=== PATIENT | male | born 1950 | race Caucasian/White ===

== ENCOUNTER 2019-07-04 19:35 | Inpatient (IN) | payer MEDICARE, OTHER ==
[~2019-07-04] VITALS: Ht 182.9 cm; Wt 135.8 kg
[2019-07-04 20:00] VITALS: BP 131/69
[2019-07-04] MEDS ORDERED: ACETAMINOPHEN 650 MG SUPP.RECT. PR PRN (20:15)
[2019-07-04] MEDS ORDERED: IV DEXTROSE 5% 250 ML BAG. IV PRN (20:15)
[2019-07-04] MEDS ORDERED: ONDANSETRON PF 4 MG/2 ML VIAL. IV PRN (20:15)
[2019-07-04] MEDS ORDERED: DEXTROSE 50% 25 GM / 50ML DISP.SYRIN. IV PRN (20:15)
[2019-07-04] MEDS ORDERED: ACETAMINOPHEN 325 MG TABLET. PO PRN (20:15)
[2019-07-04] MEDS ORDERED: AMINO AC 3%/ELECTROLYTE/GLYCER 1,000 ML IV SCH (20:15)
[2019-07-04 20:39] LABS: BASE EXCESS ABG 0 mmol/L (-3-3); HCO3 ABG 25 mmol/L (21-28); PCO2 ABG 38 mmHg (35-46); PO2 ABG 79 mmHg (65-108); SAT O2 ABG 95 % (92-99)
[2019-07-04] MEDS: ENOXAPARIN 40 MG/0.4 ML SYRINGE. SQ SCH (20:43)
[2019-07-04 20:44] LABS: FIO2 ABG 35
[2019-07-04 21:00] VITALS: BP 132/65
--- NOTE | 2019-07-04 21:00 | NUR ---
Received patient from [facility] via EMS with EMT x2 at bedside at 1930. Pt on BiPAP for transport. All monitors applied. Pt lethargic and not answering questions unless prodded. All consults called. Spoke with Dr Thompson and admission orders received. Admission complete. Plan of care initiated.
[2019-07-04] MEDS: AA 4.25 %/CALCIUM/LYTES/D5W 1,000 ML IV SCH (21:27)
[2019-07-04 22:00] VITALS: BP 135/72
[2019-07-04 22:19] LABS: BASO # 0.1 x10^3/uL (0.0-0.2); BASO % 1 % (0-3); EOS # 0.3 x10^3/uL (0.0-0.7); EOS % 2 % (0-3); LYMPH # 1.5 x10^3/uL (1.0-4.8); LYMPH % 10 % (24-48); MEAN CORPUSCULAR HEMOGLOBIN 28 pg (25-35); MEAN CORPUSCULAR HGB CONC 33 g/dL (31-37); MEAN CORPUSCULAR VOLUME 85 fL (79-100); MONO # 1.5 x10^3/uL (0.0-1.1); MONO % 9 % (0-9); NEUT # 12.2 x10^3/uL (1.8-7.7); NEUT % 78 % (31-73); PLATELET COUNT 310 x10^3/uL (140-400); RED BLOOD COUNT 2.37 x10^6/uL (4.30-5.70); RED CELL DISTRIBUTION WIDTH 15.9 % (11.5-14.5); WHITE BLOOD COUNT 15.5 x10^3/uL (4.0-11.0)
[2019-07-04 22:26] LABS: HEMATOCRIT 20.3 % (39.0-53.0); HEMOGLOBIN 6.6 g/dL (13.0-17.5)
[2019-07-04 22:38] LABS: ALBUMIN 2.1 g/dL (3.4-5.0); ALBUMIN/GLOBULIN RATIO 0.6 (1.0-1.7); CALCIUM 7.5 mg/dL (8.5-10.1); CREATININE 1.5 mg/dL (0.7-1.3); GFR 46.7; TOTAL BILIRUBIN 1.1 mg/dL (0.2-1.0); TOTAL PROTEIN 5.5 g/dL (6.4-8.2)
[2019-07-04 23:00] VITALS: BP 142/62
[2019-07-05] VITALS (20 sets, daily range): BP systolic 136–169; BP diastolic 58–90
[2019-07-05] MEDS: INSULIN LISPRO 300 UNITS/3 ML VIAL. SQ SCH ×5 (00:15→17:40)
--- NOTE | 2019-07-05 01:00 | NUR ---
Pt now awake and conversing freely. Pt angry at self for situation. Watching TV and calmer now. Medical situation discussed and NPO status discussed.
[2019-07-05 06:51] LABS: BASO # 0.1 x10^3/uL (0.0-0.2); BASO % 1 % (0-3); EOS # 0.4 x10^3/uL (0.0-0.7); EOS % 3 % (0-3); LYMPH # 1.5 x10^3/uL (1.0-4.8); LYMPH % 11 % (24-48); MEAN CORPUSCULAR HEMOGLOBIN 28 pg (25-35); MEAN CORPUSCULAR HGB CONC 33 g/dL (31-37); MEAN CORPUSCULAR VOLUME 85 fL (79-100); MONO # 1.3 x10^3/uL (0.0-1.1); MONO % 10 % (0-9); NEUT # 10.5 x10^3/uL (1.8-7.7); NEUT % 76 % (31-73); PLATELET COUNT 306 x10^3/uL (140-400); RED BLOOD COUNT 2.41 x10^6/uL (4.30-5.70); RED CELL DISTRIBUTION WIDTH 15.9 % (11.5-14.5); WHITE BLOOD COUNT 13.8 x10^3/uL (4.0-11.0)
[2019-07-05 06:57] LABS: HEMATOCRIT 20.5 % (39.0-53.0); HEMOGLOBIN 6.7 g/dL (13.0-17.5)
[2019-07-05 07:06] LABS: ALBUMIN 2.2 g/dL (3.4-5.0); ALBUMIN/GLOBULIN RATIO 0.6 (1.0-1.7); CALCIUM 7.9 mg/dL (8.5-10.1); CREATININE 1.4 mg/dL (0.7-1.3); GFR 50.5; POTASSIUM 4.2 mmol/L (3.5-5.1); TOTAL BILIRUBIN 1.1 mg/dL (0.2-1.0); TOTAL PROTEIN 5.6 g/dL (6.4-8.2)
[2019-07-05] MEDS ORDERED: INSULIN LISPRO 300 UNITS/3 ML VIAL. SQ SCH (08:00)
--- NOTE | 2019-07-05 08:13 | RAD ---
EXAM: CHEST ONE VIEW. HISTORY: Congestive heart failure. COMPARISON: None. FINDINGS: A frontal view of the chest is obtained. The central vasculature is prominent. There is no pneumothorax or clear pleural effusion. The heart is moderately enlarged. IMPRESSION: 1. Findings suggesting mild volume overload. Moderate cardiomegaly. Electronically signed by: Mali Martinez MD (07/05/2019 8:11 AM) [facility]
[2019-07-05 08:40] LABS: BASE EXCESS ABG 0 mmol/L (-3-3); HCO3 ABG 25 mmol/L (21-28); PCO2 ABG 40 mmHg (35-46); PO2 ABG 100 mmHg (65-108); SAT O2 ABG 97 % (92-99)
[2019-07-05 08:42] LABS: FIO2 ABG 35
[2019-07-05] MEDS: PANTOPRAZOLE IV PUSH 40 MG VIAL. IVP SCH (08:44)
[2019-07-05] MEDS ORDERED: FURO40TA4 PO (09:07)
[2019-07-05] MEDS ORDERED: AMLO10TA8 PO (09:07)
[2019-07-05] MEDS ORDERED: INSU100V8 SQ (09:07)
[2019-07-05] MEDS ORDERED: INSU100V6 SQ (09:07)
[2019-07-05] MEDS ORDERED: ATOR80TA72 PO (09:07)
[2019-07-05] MEDS ORDERED: LACT1CAP21 PO (09:07)
[2019-07-05] MEDS ORDERED: TAMS0.4C97 PO (09:07)
[2019-07-05] MEDS ORDERED: CARV25TA2 PO (09:07)
[2019-07-05] MEDS ORDERED: LISI-130 PO (09:07)
[2019-07-05] MEDS: AA 4.25 %/CALCIUM/LYTES/D5W 1,000 ML IV SCH (09:09)
--- NOTE | 2019-07-05 10:35 | NUR ---
Dr. Ramu monroe for critical result of Hgb 6.7 orders received to transfuse 1 unit of RBCs
--- NOTE | 2019-07-05 10:58 | PDOC ---
CARDIO Progress Notes Date and Time Date of Service 07/05/19 Time of Evaluation 1050 Subjective Subjective: No Chest Pain, No shortness of breath, No Palpitations, Other (denies any SOA. Is on BiPAP) Vitals Vitals Vital Signs Date Time Temp Pulse Resp B/P (MAP) Pulse Ox O2 Delivery O2 Flow Rate FiO2 07/05/19 10:00 97.2 66 17 154/67 (96) 100 97.2 07/05/19 09:14 BiPAP/CPAP Weight Weight [ ] Input and Output Intake and Output Intake and Output 07/05/19 07:00 Intake Total 738.2 ml Output Total 1525 ml Balance -786.8 ml Intake IV Total 738.2 ml Output Urine Total 1525 ml Laboratory Labs Laboratory Tests Test 07/04/19 20:35 07/04/19 22:00 07/05/19 00:08 07/05/19 05:40 O2 Saturation 95 % (92-99) Arterial Blood pH 7.43 (7.35-7.45) Arterial Blood pCO2 at Patient Temp 38 mmHg (35-46) Arterial Blood pO2 at Patient Temp 79 mmHg (65-108) Arterial Blood HCO3 25 mmol/L (21-28) Arterial Blood Base Excess 0 mmol/L (-3-3) FiO2 35 White Blood Count 15.5 x10^3/uL (4.0-11.0) Red Blood Count 2.37 x10^6/uL (4.30-5.70) Hemoglobin 6.6 g/dL (13.0-17.5) Hematocrit 20.3 % (39.0-53.0) Mean Corpuscular Volume 85 fL (79-100) Mean Corpuscular Hemoglobin 28 pg (25-35) Mean Corpuscular Hemoglobin Concent 33 g/dL (31-37) Red Cell Distribution Width 15.9 % (11.5-14.5) Platelet Count 310 x10^3/uL (140-400) Neutrophils (%) (Auto) 78 % (31-73) Lymphocytes (%) (Auto) 10 % (24-48) Monocytes (%) (Auto) 9 % (0-9) Eosinophils (%) (Auto) 2 % (0-3) Basophils (%) (Auto) 1 % (0-3) Neutrophils # (Auto) 12.2 x10^3/uL (1.8-7.7) Lymphocytes # (Auto) 1.5 x10^3/uL (1.0-4.8) Monocytes # (Auto) 1.5 x10^3/uL (0.0-1.1) Eosinophils # (Auto) 0.3 x10^3/uL (0.0-0.7) Basophils # (Auto) 0.1 x10^3/uL (0.0-0.2) Sodium Level 144 mmol/L (136-145) Potassium Level 4.0 mmol/L (3.5-5.1) Chloride Level 108 mmol/L (98-107) Carbon Dioxide Level 28 mmol/L (21-32) Anion Gap 8 (6-14) Blood Urea Nitrogen 23 mg/dL (8-26) Creatinine 1.5 mg/dL (0.7-1.3) Estimated GFR (Cockcroft-Gault) 46.7 BUN/Creatinine Ratio 15 (6-20) Glucose Level 161 mg/dL (70-99) Calcium Level 7.5 mg/dL (8.5-10.1) Total Bilirubin 1.1 mg/dL (0.2-1.0) Aspartate Amino Transf (AST/SGOT) 14 U/L (15-37) Alanine Aminotransferase (ALT/SGPT) 17 U/L (16-63) Alkaline Phosphatase 69 U/L (46-116) Total Protein 5.5 g/dL (6.4-8.2) Albumin 2.1 g/dL (3.4-5.0) Albumin/Globulin Ratio 0.6 (1.0-1.7) Glucose (Fingerstick) 171 mg/dL (70-99) 192 mg/dL (70-99) Test 07/05/19 06:30 07/05/19 08:00 White Blood Count 13.8 x10^3/uL (4.0-11.0) Red Blood Count 2.41 x10^6/uL (4.30-5.70) Hemoglobin 6.7 g/dL (13.0-17.5) Hematocrit 20.5 % (39.0-53.0) Mean Corpuscular Volume 85 fL (79-100) Mean Corpuscular Hemoglobin 28 pg (25-35) Mean Corpuscular Hemoglobin Concent 33 g/dL (31-37) Red Cell Distribution Width 15.9 % (11.5-14.5) Platelet Count 306 x10^3/uL (140-400) Neutrophils (%) (Auto) 76 % (31-73) Lymphocytes (%) (Auto) 11 % (24-48) Monocytes (%) (Auto) 10 % (0-9) Eosinophils (%) (Auto) 3 % (0-3) Basophils (%) (Auto) 1 % (0-3) Neutrophils # (Auto) 10.5 x10^3/uL (1.8-7.7) Lymphocytes # (Auto) 1.5 x10^3/uL (1.0-4.8) Monocytes # (Auto) 1.3 x10^3/uL (0.0-1.1) Eosinophils # (Auto) 0.4 x10^3/uL (0.0-0.7) Basophils # (Auto) 0.1 x10^3/uL (0.0-0.2) Sodium Level 144 mmol/L (136-145) Potassium Level 4.2 mmol/L (3.5-5.1) Chloride Level 109 mmol/L (98-107) Carbon Dioxide Level 30 mmol/L (21-32) Anion Gap 5 (6-14) Blood Urea Nitrogen 24 mg/dL (8-26) Creatinine 1.4 mg/dL (0.7-1.3) Estimated GFR (Cockcroft-Gault) 50.5 BUN/Creatinine Ratio 17 (6-20) Glucose Level 206 mg/dL (70-99) Calcium Level 7.9 mg/dL (8.5-10.1) Total Bilirubin 1.1 mg/dL (0.2-1.0) Aspartate Amino Transf (AST/SGOT) 11 U/L (15-37) Alanine Aminotransferase (ALT/SGPT) 18 U/L (16-63) Alkaline Phosphatase 65 U/L (46-116) Ammonia < 10 mcmol/L (11-34) Total Protein 5.6 g/dL (6.4-8.2) Albumin 2.2 g/dL (3.4-5.0) Albumin/Globulin Ratio 0.6 (1.0-1.7) O2 Saturation 97 % (92-99) Arterial Blood pH 7.41 (7.35-7.45) Arterial Blood pCO2 at Patient Temp 40 mmHg (35-46) Arterial Blood pO2 at Patient Temp 100 mmHg (65-108) Arterial Blood HCO3 25 mmol/L (21-28) Arterial Blood Base Excess 0 mmol/L (-3-3) FiO2 35 Physical Exam HEENT: Neck Supple W Full Motion Chest: Symmetric LUNGS: Other (on BiPAP, diminished ) Heart: S1S2, RRR, other (distant heart tones ) Abdomen: Soft N/T, Other (obese ) Extremities: Other (trace bilateral LE edema ) Neurology: alert, oriented, follow commands Assessment Assessment Patient seen by our service at [facility] 07/04/19. Please see consul in physical chart for further details. Assessment 1. Weakness, fatigue in the setting of profound anemia; requiring multiple transfusion; no obvious bleeding 2. Acute on chronic probable diastolic CHF 3. Acute respiratory failure, multifactiorial 4. KALANI with CPAP 5. CAD s/p PCI/stents in 2009. Previously followed at , but not recently 6. Hypertension; controlled 7. Hyperlipidemia; statin therapy 8. Diabetes, II; as per PCP 9. GLENN vs CKD Recommendation Transfuse as warranted Diuresis following blood today Echo to assess LV systolic function Lipids Secondary prevent as able No ASA with anemia Consider further ischemic evaluation on an outpatient basis TJ ALTAMIRANO APRN Jul 05, 2019 10:58
[2019-07-05] MEDS ORDERED: FUROSEMIDE 40 MG/4 ML VIAL. IVP ONE (11:30)
[2019-07-05 11:51] LABS: CHOLESTEROL/HDL RATIO 3.2
[2019-07-05] MEDS ORDERED: ATOR40TA59 PO (12:47)
[2019-07-05] MEDS: TAMSULOSIN 0.4 MG CAP.ER.24H. PO SCH (13:21)
[2019-07-05] MEDS: LISINOPRIL 20 MG TABLET PO SCH (13:22)
[2019-07-05] MEDS: LACTOBACILLUS RHAMNOSUS GG 1 CAPSULE. PO SCH (13:22)
--- NOTE | 2019-07-05 14:05 | PDOC ---
PULMONARY PROGRESS NOTES Vitals Vital Signs Date Time Temp Pulse Resp B/P (MAP) Pulse Ox O2 Delivery O2 Flow Rate FiO2 07/05/19 13:22 68 166/64 07/05/19 13:00 97.9 17 96 Nasal Cannula 3.0 97.9 Labs Laboratory Tests Test 07/04/19 20:35 07/04/19 22:00 07/05/19 00:08 07/05/19 05:40 O2 Saturation 95 % (92-99) Arterial Blood pH 7.43 (7.35-7.45) Arterial Blood pCO2 at Patient Temp 38 mmHg (35-46) Arterial Blood pO2 at Patient Temp 79 mmHg (65-108) Arterial Blood HCO3 25 mmol/L (21-28) Arterial Blood Base Excess 0 mmol/L (-3-3) FiO2 35 White Blood Count 15.5 x10^3/uL (4.0-11.0) Red Blood Count 2.37 x10^6/uL (4.30-5.70) Hemoglobin 6.6 g/dL (13.0-17.5) Hematocrit 20.3 % (39.0-53.0) Mean Corpuscular Volume 85 fL (79-100) Mean Corpuscular Hemoglobin 28 pg (25-35) Mean Corpuscular Hemoglobin Concent 33 g/dL (31-37) Red Cell Distribution Width 15.9 % (11.5-14.5) Platelet Count 310 x10^3/uL (140-400) Neutrophils (%) (Auto) 78 % (31-73) Lymphocytes (%) (Auto) 10 % (24-48) Monocytes (%) (Auto) 9 % (0-9) Eosinophils (%) (Auto) 2 % (0-3) Basophils (%) (Auto) 1 % (0-3) Neutrophils # (Auto) 12.2 x10^3/uL (1.8-7.7) Lymphocytes # (Auto) 1.5 x10^3/uL (1.0-4.8) Monocytes # (Auto) 1.5 x10^3/uL (0.0-1.1) Eosinophils # (Auto) 0.3 x10^3/uL (0.0-0.7) Basophils # (Auto) 0.1 x10^3/uL (0.0-0.2) Sodium Level 144 mmol/L (136-145) Potassium Level 4.0 mmol/L (3.5-5.1) Chloride Level 108 mmol/L (98-107) Carbon Dioxide Level 28 mmol/L (21-32) Anion Gap 8 (6-14) Blood Urea Nitrogen 23 mg/dL (8-26) Creatinine 1.5 mg/dL (0.7-1.3) Estimated GFR (Cockcroft-Gault) 46.7 BUN/Creatinine Ratio 15 (6-20) Glucose Level 161 mg/dL (70-99) Calcium Level 7.5 mg/dL (8.5-10.1) Total Bilirubin 1.1 mg/dL (0.2-1.0) Aspartate Amino Transf (AST/SGOT) 14 U/L (15-37) Alanine Aminotransferase (ALT/SGPT) 17 U/L (16-63) Alkaline Phosphatase 69 U/L (46-116) Total Protein 5.5 g/dL (6.4-8.2) Albumin 2.1 g/dL (3.4-5.0) Albumin/Globulin Ratio 0.6 (1.0-1.7) Glucose (Fingerstick) 171 mg/dL (70-99) 192 mg/dL (70-99) Test 07/05/19 06:30 07/05/19 08:00 07/05/19 12:11 White Blood Count 13.8 x10^3/uL (4.0-11.0) Red Blood Count 2.41 x10^6/uL (4.30-5.70) Hemoglobin 6.7 g/dL (13.0-17.5) Hematocrit 20.5 % (39.0-53.0) Mean Corpuscular Volume 85 fL (79-100) Mean Corpuscular Hemoglobin 28 pg (25-35) Mean Corpuscular Hemoglobin Concent 33 g/dL (31-37) Red Cell Distribution Width 15.9 % (11.5-14.5) Platelet Count 306 x10^3/uL (140-400) Neutrophils (%) (Auto) 76 % (31-73) Lymphocytes (%) (Auto) 11 % (24-48) Monocytes (%) (Auto) 10 % (0-9) Eosinophils (%) (Auto) 3 % (0-3) Basophils (%) (Auto) 1 % (0-3) Neutrophils # (Auto) 10.5 x10^3/uL (1.8-7.7) Lymphocytes # (Auto) 1.5 x10^3/uL (1.0-4.8) Monocytes # (Auto) 1.3 x10^3/uL (0.0-1.1) Eosinophils # (Auto) 0.4 x10^3/uL (0.0-0.7) Basophils # (Auto) 0.1 x10^3/uL (0.0-0.2) Sodium Level 144 mmol/L (136-145) Potassium Level 4.2 mmol/L (3.5-5.1) Chloride Level 109 mmol/L (98-107) Carbon Dioxide Level 30 mmol/L (21-32) Anion Gap 5 (6-14) Blood Urea Nitrogen 24 mg/dL (8-26) Creatinine 1.4 mg/dL (0.7-1.3) Estimated GFR (Cockcroft-Gault) 50.5 BUN/Creatinine Ratio 17 (6-20) Glucose Level 206 mg/dL (70-99) Calcium Level 7.9 mg/dL (8.5-10.1) Total Bilirubin 1.1 mg/dL (0.2-1.0) Aspartate Amino Transf (AST/SGOT) 11 U/L (15-37) Alanine Aminotransferase (ALT/SGPT) 18 U/L (16-63) Alkaline Phosphatase 65 U/L (46-116) Ammonia < 10 mcmol/L (11-34) Total Protein 5.6 g/dL (6.4-8.2) Albumin 2.2 g/dL (3.4-5.0) Albumin/Globulin Ratio 0.6 (1.0-1.7) Triglycerides Level 70 mg/dL (0-150) Cholesterol Level 95 mg/dL (0-200) LDL Cholesterol, Calculated 51 mg/dL (0-100) VLDL Cholesterol, Calculated 14 mg/dL (0-40) Non-HDL Cholesterol Calculated 65 mg/dL (0-129) HDL Cholesterol 30 mg/dL (40-60) Cholesterol/HDL Ratio 3.2 Thyroid Stimulating Hormone (TSH) 0.698 uIU/mL (0.358-3.74) O2 Saturation 97 % (92-99) Arterial Blood pH 7.41 (7.35-7.45) Arterial Blood pCO2 at Patient Temp 40 mmHg (35-46) Arterial Blood pO2 at Patient Temp 100 mmHg (65-108) Arterial Blood HCO3 25 mmol/L (21-28) Arterial Blood Base Excess 0 mmol/L (-3-3) FiO2 35 Glucose (Fingerstick) 206 mg/dL (70-99) Laboratory Tests Test 07/04/19 20:35 07/04/19 22:00 07/05/19 00:08 07/05/19 05:40 O2 Saturation 95 % (92-99) Arterial Blood pH 7.43 (7.35-7.45) Arterial Blood pCO2 at Patient Temp 38 mmHg (35-46) Arterial Blood pO2 at Patient Temp 79 mmHg (65-108) Arterial Blood HCO3 25 mmol/L (21-28) Arterial Blood Base Excess 0 mmol/L (-3-3) FiO2 35 White Blood Count 15.5 x10^3/uL (4.0-11.0) Red Blood Count 2.37 x10^6/uL (4.30-5.70) Hemoglobin 6.6 g/dL (13.0-17.5) Hematocrit 20.3 % (39.0-53.0) Mean Corpuscular Volume 85 fL (79-100) Mean Corpuscular Hemoglobin 28 pg (25-35) Mean Corpuscular Hemoglobin Concent 33 g/dL (31-37) Red Cell Distribution Width 15.9 % (11.5-14.5) Platelet Count 310 x10^3/uL (140-400) Neutrophils (%) (Auto) 78 % (31-73) Lymphocytes (%) (Auto) 10 % (24-48) Monocytes (%) (Auto) 9 % (0-9) Eosinophils (%) (Auto) 2 % (0-3) Basophils (%) (Auto) 1 % (0-3) Neutrophils # (Auto) 12.2 x10^3/uL (1.8-7.7) Lymphocytes # (Auto) 1.5 x10^3/uL (1.0-4.8) Monocytes # (Auto) 1.5 x10^3/uL (0.0-1.1) Eosinophils # (Auto) 0.3 x10^3/uL (0.0-0.7) Basophils # (Auto) 0.1 x10^3/uL (0.0-0.2) Sodium Level 144 mmol/L (136-145) Potassium Level 4.0 mmol/L (3.5-5.1) Chloride Level 108 mmol/L (98-107) Carbon Dioxide Level 28 mmol/L (21-32) Anion Gap 8 (6-14) Blood Urea Nitrogen 23 mg/dL (8-26) Creatinine 1.5 mg/dL (0.7-1.3) Estimated GFR (Cockcroft-Gault) 46.7 BUN/Creatinine Ratio 15 (6-20) Glucose Level 161 mg/dL (70-99) Calcium Level 7.5 mg/dL (8.5-10.1) Total Bilirubin 1.1 mg/dL (0.2-1.0) Aspartate Amino Transf (AST/SGOT) 14 U/L (15-37) Alanine Aminotransferase (ALT/SGPT) 17 U/L (16-63) Alkaline Phosphatase 69 U/L (46-116) Total Protein 5.5 g/dL (6.4-8.2) Albumin 2.1 g/dL (3.4-5.0) Albumin/Globulin Ratio 0.6 (1.0-1.7) Glucose (Fingerstick) 171 mg/dL (70-99) 192 mg/dL (70-99) Test 07/05/19 06:30 07/05/19 08:00 07/05/19 12:11 White Blood Count 13.8 x10^3/uL (4.0-11.0) Red Blood Count 2.41 x10^6/uL (4.30-5.70) Hemoglobin 6.7 g/dL (13.0-17.5) Hematocrit 20.5 % (39.0-53.0) Mean Corpuscular Volume 85 fL (79-100) Mean Corpuscular Hemoglobin 28 pg (25-35) Mean Corpuscular Hemoglobin Concent 33 g/dL (31-37) Red Cell Distribution Width 15.9 % (11.5-14.5) Platelet Count 306 x10^3/uL (140-400) Neutrophils (%) (Auto) 76 % (31-73) Lymphocytes (%) (Auto) 11 % (24-48) Monocytes (%) (Auto) 10 % (0-9) Eosinophils (%) (Auto) 3 % (0-3) Basophils (%) (Auto) 1 % (0-3) Neutrophils # (Auto) 10.5 x10^3/uL (1.8-7.7) Lymphocytes # (Auto) 1.5 x10^3/uL (1.0-4.8) Monocytes # (Auto) 1.3 x10^3/uL (0.0-1.1) Eosinophils # (Auto) 0.4 x10^3/uL (0.0-0.7) Basophils # (Auto) 0.1 x10^3/uL (0.0-0.2) Sodium Level 144 mmol/L (136-145) Potassium Level 4.2 mmol/L (3.5-5.1) Chloride Level 109 mmol/L (98-107) Carbon Dioxide Level 30 mmol/L (21-32) Anion Gap 5 (6-14) Blood Urea Nitrogen 24 mg/dL (8-26) Creatinine 1.4 mg/dL (0.7-1.3) Estimated GFR (Cockcroft-Gault) 50.5 BUN/Creatinine Ratio 17 (6-20) Glucose Level 206 mg/dL (70-99) Calcium Level 7.9 mg/dL (8.5-10.1) Total Bilirubin 1.1 mg/dL (0.2-1.0) Aspartate Amino Transf (AST/SGOT) 11 U/L (15-37) Alanine Aminotransferase (ALT/SGPT) 18 U/L (16-63) Alkaline Phosphatase 65 U/L (46-116) Ammonia < 10 mcmol/L (11-34) Total Protein 5.6 g/dL (6.4-8.2) Albumin 2.2 g/dL (3.4-5.0) Albumin/Globulin Ratio 0.6 (1.0-1.7) Triglycerides Level 70 mg/dL (0-150) Cholesterol Level 95 mg/dL (0-200) LDL Cholesterol, Calculated 51 mg/dL (0-100) VLDL Cholesterol, Calculated 14 mg/dL (0-40) Non-HDL Cholesterol Calculated 65 mg/dL (0-129) HDL Cholesterol 30 mg/dL (40-60) Cholesterol/HDL Ratio 3.2 Thyroid Stimulating Hormone (TSH) 0.698 uIU/mL (0.358-3.74) O2 Saturation 97 % (92-99) Arterial Blood pH 7.41 (7.35-7.45) Arterial Blood pCO2 at Patient Temp 40 mmHg (35-46) Arterial Blood pO2 at Patient Temp 100 mmHg (65-108) Arterial Blood HCO3 25 mmol/L (21-28) Arterial Blood Base Excess 0 mmol/L (-3-3) FiO2 35 Glucose (Fingerstick) 206 mg/dL (70-99) Medications Active Scripts Medications Dose Route/Sig Max Daily Dose Days Date Category Atorvastatin Calcium 40 Mg Tablet 80 Mg PO HS 07/05/19 Reported Amlodipine Besylate 10 Mg Tablet 10 Mg PO HS 07/05/19 Reported Flomax (Tamsulosin Hcl) 0.4 Mg Cap.er.24h 0.4 Mg PO DAILY 07/05/19 Reported Lisinopril 40 Mg Tablet 40 Mg PO DAILY 07/05/19 Reported Culturelle (Lactobacillus Rhamnosus Gg) 1 Each Capsule 1 Cap PO DAILY 30 07/05/19 Reported Humalog (Insulin Lispro) 100 Unit/1 Ml Vial 5 Unit SQ TIDAC 07/05/19 Reported Lantus (Insulin Glargine,Hum.rec.anlog) 100 Unit/1 Ml Vial 15 Unit SQ HS 07/05/19 Reported Furosemide 40 Mg Tablet 40 Mg PO DAILY 07/05/19 Reported Carvedilol 25 Mg Tablet 25 Mg PO TID 07/05/19 Reported Impression . FULL NOTE DICTATED THANKS AGREE WITH CURRENT RX ZACKARY ANTONIO MD Jul 05, 2019 14:05
--- NOTE | 2019-07-05 14:46 | PDOC1 ---
History and Physical Date of Admission: Date of Admission DATE: 07/05/19 TIME: 14:40 Chief Complaint: Chief Complain: Shortness of breath Mental status change History of Present Illness: HPI: This is an elderly white male who developed respiratory failure He is very short of breath and weak and not thinking clearly Rated his symptoms at 7 out of 10 Has some associated weakness Moving makes it worse in still makes it better He tried to increase his home meds but that did not help This is been coming on for several days While in the ER he was noted to be in heart failure and anemic and respiratory failure He is placed on BiPAP Currently being examined in the intensive care unit room 112 were he is on BiPAP 16 inspiratory pressure 6 expiratory pressure with 35% oxygen Past Medical/Surgical History: PMH/PSH: Anemia CHF KALANI CAD s/p PCI/stents in 2009 Hypertension Hyperlipidemia Diabetes, II GLENN vs CKD Allergies: Allergies: Coded Allergies: No Known Drug Allergies (Unverified , 06/26/16) Family History: Family History: Hypertension coronary disease Social History: Social Hisoty: He is retired he does not drink smoke or take drugs Current Medications: Current Medications Current Medications Ondansetron HCl (Zofran) 4 mg PRN Q4HRS PRN IV NAUSEA/VOMITING; Start 07/04/19 at 20:15 Acetaminophen (Tylenol) 650 mg PRN Q4HRS PRN PO TEMP OVER 100.4F OR MILD PAIN; Start 07/04/19 at 20:15 Acetaminophen (Tylenol Supp) 650 mg PRN Q4HRS PRN NE TEMP OVER 100.4F OR MILD PAIN; Start 07/04/19 at 20:15 Enoxaparin Sodium (Lovenox 40mg Syringe) 40 mg Q24H SQ Last administered on 07/04/19at 20:43; Start 07/04/19 at 20:15 Pantoprazole Sodium (PROTONIX VIAL for IV PUSH) 40 mg DAILYAC IVP Last administered on 07/05/19at 08:44; Start 07/05/19 at 07:30 Amino Acids/ Glycerin/ Electrolytes 1,000 ml @ 70 mls/hr [id number] IV Last administered on 07/04/19at 20:43; Start 07/04/19 at 20:15; Stop 07/04/19 at 21:05; Status DC Insulin Human Lispro (HumaLOG) 0-9 UNITS TIDWMEALS SQ ; Start 07/05/19 at 08:00; Stop 07/05/19 at 00:16; Status DC Dextrose (Dextrose 50%-Water Syringe) 12.5 gm PRN Q15MIN PRN IV SEE COMMENTS; Start 07/04/19 at 20:15 Dextrose (Iv Dextrose 5%) 250 ml PRN Q15MIN PRN IV SEE COMMENTS; Start 07/04/19 at 20:15 Amino Acids/ Electrolytes/ Dextrose 1,000 ml @ 80 mls/hr [id number] IV Last administered on 07/05/19at 09:09; Start 07/04/19 at 21:15 Insulin Human Lispro (HumaLOG) 0-9 UNITS Q6HRS SQ Last administered on 07/05/19at 12:15; Start 07/05/19 at 00:15 Furosemide (Lasix) 40 mg 1X ONCE IVP ; Start 07/05/19 at 11:30; Stop 07/05/19 at 11:31; Status DC Amlodipine Besylate (Norvasc) 10 mg HS PO ; Start 07/05/19 at 21:00 Insulin Glargine (Lantus Syringe) 15 unit HS SQ ; Start 07/05/19 at 21:00 Insulin Human Lispro (HumaLOG) 5 units TIDWMEALS SQ ; Start 07/05/19 at 17:00 Lisinopril (Prinivil) 40 mg DAILY PO Last administered on 07/05/19at 13:22; Start 07/05/19 at 14:00 Tamsulosin HCl (Flomax) 0.4 mg DAILY PO Last administered on 07/05/19at 13:21; Start 07/05/19 at 14:00 Carvedilol (Coreg) 25 mg BIDWMEALS PO ; Start 07/05/19 at 17:00 Lactobacillus Rhamnosus (Culturelle) 1 cap DAILY PO Last administered on 07/05/19at 13:22; Start 07/05/19 at 14:00 Atorvastatin Calcium (Lipitor) 80 mg HS PO ; Start 07/05/19 at 21:00 Active Scripts Active Reported Atorvastatin Calcium 40 Mg Tablet 80 Mg PO HS Amlodipine Besylate 10 Mg Tablet 10 Mg PO HS Flomax (Tamsulosin Hcl) 0.4 Mg Cap.er.24h 0.4 Mg PO DAILY Lisinopril 40 Mg Tablet 40 Mg PO DAILY Culturelle (Lactobacillus Rhamnosus Gg) 1 Each Capsule 1 Cap PO DAILY 30 Days Humalog (Insulin Lispro) 100 Unit/1 Ml Vial 5 Unit SQ TIDAC Lantus (Insulin Glargine,Hum.rec.anlog) 100 Unit/1 Ml Vial 15 Unit SQ HS Furosemide 40 Mg Tablet 40 Mg PO DAILY Carvedilol 25 Mg Tablet 25 Mg PO TID ROS: Review of Systems Unable to obtain the patient is on BiPAP and confused Physical Exam: Vital Signs: Vital Signs Date Time Temp Pulse Resp B/P (MAP) Pulse Ox O2 Delivery O2 Flow Rate FiO2 07/05/19 13:22 68 166/64 07/05/19 13:00 97.9 17 96 Nasal Cannula 3.0 97.9 Physcial Exam: GEN: On BiPAP pleasantly confused HEENT: Normal cephalic, atraumatic, external auditory canals are patent has a BiPAP mask on EYES: Extraocular muscles are intact, pupil are equally round and reactive to light and accommodation MUSCULOSKELETAL: Well developed , well nourished, good range of motion ENDOCRINE: No thyromegaly was palpated LYMPHATICS: No cervical chain or axillary nodes were noted HEMATOPOIETIC: No bruising NECK: Supple, no JVD, no thyromegaly was noted LUNGS: Bibasilar crackles HEART: RRR, S!, S2 present. S3 gallop Peripheral pulses intact, no obvious murmurs noted ABDOMEN: Soft, nontender. Positive bowel sounds, no organomegaly, normal bowel sounds EXTREMITIES: 2+ edema NEUROLOGIC: Pleasantly confused PSYCHIATRIC: LAD affect pleasantly confused SKIN: No ulcerations or rashes, good skin turgor, no jaundice VASCULAR: Slow capillary refill Labs: Labs: Laboratory Tests Test 07/04/19 20:35 07/04/19 22:00 07/05/19 00:08 07/05/19 05:40 O2 Saturation 95 % (92-99) Arterial Blood pH 7.43 (7.35-7.45) Arterial Blood pCO2 at Patient Temp 38 mmHg (35-46) Arterial Blood pO2 at Patient Temp 79 mmHg (65-108) Arterial Blood HCO3 25 mmol/L (21-28) Arterial Blood Base Excess 0 mmol/L (-3-3) FiO2 35 White Blood Count 15.5 x10^3/uL (4.0-11.0) Red Blood Count 2.37 x10^6/uL (4.30-5.70) Hemoglobin 6.6 g/dL (13.0-17.5) Hematocrit 20.3 % (39.0-53.0) Mean Corpuscular Volume 85 fL (79-100) Mean Corpuscular Hemoglobin 28 pg (25-35) Mean Corpuscular Hemoglobin Concent 33 g/dL (31-37) Red Cell Distribution Width 15.9 % (11.5-14.5) Platelet Count 310 x10^3/uL (140-400) Neutrophils (%) (Auto) 78 % (31-73) Lymphocytes (%) (Auto) 10 % (24-48) Monocytes (%) (Auto) 9 % (0-9) Eosinophils (%) (Auto) 2 % (0-3) Basophils (%) (Auto) 1 % (0-3) Neutrophils # (Auto) 12.2 x10^3/uL (1.8-7.7) Lymphocytes # (Auto) 1.5 x10^3/uL (1.0-4.8) Monocytes # (Auto) 1.5 x10^3/uL (0.0-1.1) Eosinophils # (Auto) 0.3 x10^3/uL (0.0-0.7) Basophils # (Auto) 0.1 x10^3/uL (0.0-0.2) Sodium Level 144 mmol/L (136-145) Potassium Level 4.0 mmol/L (3.5-5.1) Chloride Level 108 mmol/L (98-107) Carbon Dioxide Level 28 mmol/L (21-32) Anion Gap 8 (6-14) Blood Urea Nitrogen 23 mg/dL (8-26) Creatinine 1.5 mg/dL (0.7-1.3) Estimated GFR (Cockcroft-Gault) 46.7 BUN/Creatinine Ratio 15 (6-20) Glucose Level 161 mg/dL (70-99) Calcium Level 7.5 mg/dL (8.5-10.1) Total Bilirubin 1.1 mg/dL (0.2-1.0) Aspartate Amino Transf (AST/SGOT) 14 U/L (15-37) Alanine Aminotransferase (ALT/SGPT) 17 U/L (16-63) Alkaline Phosphatase 69 U/L (46-116) Total Protein 5.5 g/dL (6.4-8.2) Albumin 2.1 g/dL (3.4-5.0) Albumin/Globulin Ratio 0.6 (1.0-1.7) Glucose (Fingerstick) 171 mg/dL (70-99) 192 mg/dL (70-99) Test 07/05/19 06:30 07/05/19 08:00 07/05/19 12:11 White Blood Count 13.8 x10^3/uL (4.0-11.0) Red Blood Count 2.41 x10^6/uL (4.30-5.70) Hemoglobin 6.7 g/dL (13.0-17.5) Hematocrit 20.5 % (39.0-53.0) Mean Corpuscular Volume 85 fL (79-100) Mean Corpuscular Hemoglobin 28 pg (25-35) Mean Corpuscular Hemoglobin Concent 33 g/dL (31-37) Red Cell Distribution Width 15.9 % (11.5-14.5) Platelet Count 306 x10^3/uL (140-400) Neutrophils (%) (Auto) 76 % (31-73) Lymphocytes (%) (Auto) 11 % (24-48) Monocytes (%) (Auto) 10 % (0-9) Eosinophils (%) (Auto) 3 % (0-3) Basophils (%) (Auto) 1 % (0-3) Neutrophils # (Auto) 10.5 x10^3/uL (1.8-7.7) Lymphocytes # (Auto) 1.5 x10^3/uL (1.0-4.8) Monocytes # (Auto) 1.3 x10^3/uL (0.0-1.1) Eosinophils # (Auto) 0.4 x10^3/uL (0.0-0.7) Basophils # (Auto) 0.1 x10^3/uL (0.0-0.2) Sodium Level 144 mmol/L (136-145) Potassium Level 4.2 mmol/L (3.5-5.1) Chloride Level 109 mmol/L (98-107) Carbon Dioxide Level 30 mmol/L (21-32) Anion Gap 5 (6-14) Blood Urea Nitrogen 24 mg/dL (8-26) Creatinine 1.4 mg/dL (0.7-1.3) Estimated GFR (Cockcroft-Gault) 50.5 BUN/Creatinine Ratio 17 (6-20) Glucose Level 206 mg/dL (70-99) Calcium Level 7.9 mg/dL (8.5-10.1) Total Bilirubin 1.1 mg/dL (0.2-1.0) Aspartate Amino Transf (AST/SGOT) 11 U/L (15-37) Alanine Aminotransferase (ALT/SGPT) 18 U/L (16-63) Alkaline Phosphatase 65 U/L (46-116) Ammonia < 10 mcmol/L (11-34) Total Protein 5.6 g/dL (6.4-8.2) Albumin 2.2 g/dL (3.4-5.0) Albumin/Globulin Ratio 0.6 (1.0-1.7) Triglycerides Level 70 mg/dL (0-150) Cholesterol Level 95 mg/dL (0-200) LDL Cholesterol, Calculated 51 mg/dL (0-100) VLDL Cholesterol, Calculated 14 mg/dL (0-40) Non-HDL Cholesterol Calculated 65 mg/dL (0-129) HDL Cholesterol 30 mg/dL (40-60) Cholesterol/HDL Ratio 3.2 Thyroid Stimulating Hormone (TSH) 0.698 uIU/mL (0.358-3.74) O2 Saturation 97 % (92-99) Arterial Blood pH 7.41 (7.35-7.45) Arterial Blood pCO2 at Patient Temp 40 mmHg (35-46) Arterial Blood pO2 at Patient Temp 100 mmHg (65-108) Arterial Blood HCO3 25 mmol/L (21-28) Arterial Blood Base Excess 0 mmol/L (-3-3) FiO2 35 Glucose (Fingerstick) 206 mg/dL (70-99) Laboratory Tests Test 07/04/19 20:35 07/04/19 22:00 07/05/19 00:08 07/05/19 05:40 O2 Saturation 95 % (92-99) Arterial Blood pH 7.43 (7.35-7.45) Arterial Blood pCO2 at Patient Temp 38 mmHg (35-46) Arterial Blood pO2 at Patient Temp 79 mmHg (65-108) Arterial Blood HCO3 25 mmol/L (21-28) Arterial Blood Base Excess 0 mmol/L (-3-3) FiO2 35 White Blood Count 15.5 x10^3/uL (4.0-11.0) Red Blood Count 2.37 x10^6/uL (4.30-5.70) Hemoglobin 6.6 g/dL (13.0-17.5) Hematocrit 20.3 % (39.0-53.0) Mean Corpuscular Volume 85 fL (79-100) Mean Corpuscular Hemoglobin 28 pg (25-35) Mean Corpuscular Hemoglobin Concent 33 g/dL (31-37) Red Cell Distribution Width 15.9 % (11.5-14.5) Platelet Count 310 x10^3/uL (140-400) Neutrophils (%) (Auto) 78 % (31-73) Lymphocytes (%) (Auto) 10 % (24-48) Monocytes (%) (Auto) 9 % (0-9) Eosinophils (%) (Auto) 2 % (0-3) Basophils (%) (Auto) 1 % (0-3) Neutrophils # (Auto) 12.2 x10^3/uL (1.8-7.7) Lymphocytes # (Auto) 1.5 x10^3/uL (1.0-4.8) Monocytes # (Auto) 1.5 x10^3/uL (0.0-1.1) Eosinophils # (Auto) 0.3 x10^3/uL (0.0-0.7) Basophils # (Auto) 0.1 x10^3/uL (0.0-0.2) Sodium Level 144 mmol/L (136-145) Potassium Level 4.0 mmol/L (3.5-5.1) Chloride Level 108 mmol/L (98-107) Carbon Dioxide Level 28 mmol/L (21-32) Anion Gap 8 (6-14) Blood Urea Nitrogen 23 mg/dL (8-26) Creatinine 1.5 mg/dL (0.7-1.3) Estimated GFR (Cockcroft-Gault) 46.7 BUN/Creatinine Ratio 15 (6-20) Glucose Level 161 mg/dL (70-99) Calcium Level 7.5 mg/dL (8.5-10.1) Total Bilirubin 1.1 mg/dL (0.2-1.0) Aspartate Amino Transf (AST/SGOT) 14 U/L (15-37) Alanine Aminotransferase (ALT/SGPT) 17 U/L (16-63) Alkaline Phosphatase 69 U/L (46-116) Total Protein 5.5 g/dL (6.4-8.2) Albumin 2.1 g/dL (3.4-5.0) Albumin/Globulin Ratio 0.6 (1.0-1.7) Glucose (Fingerstick) 171 mg/dL (70-99) 192 mg/dL (70-99) Test 07/05/19 06:30 07/05/19 08:00 07/05/19 12:11 White Blood Count 13.8 x10^3/uL (4.0-11.0) Red Blood Count 2.41 x10^6/uL (4.30-5.70) Hemoglobin 6.7 g/dL (13.0-17.5) Hematocrit 20.5 % (39.0-53.0) Mean Corpuscular Volume 85 fL (79-100) Mean Corpuscular Hemoglobin 28 pg (25-35) Mean Corpuscular Hemoglobin Concent 33 g/dL (31-37) Red Cell Distribution Width 15.9 % (11.5-14.5) Platelet Count 306 x10^3/uL (140-400) Neutrophils (%) (Auto) 76 % (31-73) Lymphocytes (%) (Auto) 11 % (24-48) Monocytes (%) (Auto) 10 % (0-9) Eosinophils (%) (Auto) 3 % (0-3) Basophils (%) (Auto) 1 % (0-3) Neutrophils # (Auto) 10.5 x10^3/uL (1.8-7.7) Lymphocytes # (Auto) 1.5 x10^3/uL (1.0-4.8) Monocytes # (Auto) 1.3 x10^3/uL (0.0-1.1) Eosinophils # (Auto) 0.4 x10^3/uL (0.0-0.7) Basophils # (Auto) 0.1 x10^3/uL (0.0-0.2) Sodium Level 144 mmol/L (136-145) Potassium Level 4.2 mmol/L (3.5-5.1) Chloride Level 109 mmol/L (98-107) Carbon Dioxide Level 30 mmol/L (21-32) Anion Gap 5 (6-14) Blood Urea Nitrogen 24 mg/dL (8-26) Creatinine 1.4 mg/dL (0.7-1.3) Estimated GFR (Cockcroft-Gault) 50.5 BUN/Creatinine Ratio 17 (6-20) Glucose Level 206 mg/dL (70-99) Calcium Level 7.9 mg/dL (8.5-10.1) Total Bilirubin 1.1 mg/dL (0.2-1.0) Aspartate Amino Transf (AST/SGOT) 11 U/L (15-37) Alanine Aminotransferase (ALT/SGPT) 18 U/L (16-63) Alkaline Phosphatase 65 U/L (46-116) Ammonia < 10 mcmol/L (11-34) Total Protein 5.6 g/dL (6.4-8.2) Albumin 2.2 g/dL (3.4-5.0) Albumin/Globulin Ratio 0.6 (1.0-1.7) Triglycerides Level 70 mg/dL (0-150) Cholesterol Level 95 mg/dL (0-200) LDL Cholesterol, Calculated 51 mg/dL (0-100) VLDL Cholesterol, Calculated 14 mg/dL (0-40) Non-HDL Cholesterol Calculated 65 mg/dL (0-129) HDL Cholesterol 30 mg/dL (40-60) Cholesterol/HDL Ratio 3.2 Thyroid Stimulating Hormone (TSH) 0.698 uIU/mL (0.358-3.74) O2 Saturation 97 % (92-99) Arterial Blood pH 7.41 (7.35-7.45) Arterial Blood pCO2 at Patient Temp 40 mmHg (35-46) Arterial Blood pO2 at Patient Temp 100 mmHg (65-108) Arterial Blood HCO3 25 mmol/L (21-28) Arterial Blood Base Excess 0 mmol/L (-3-3) FiO2 35 Glucose (Fingerstick) 206 mg/dL (70-99) Images: Images I reviewed the chest x-ray myself By my eye shows cardiomegaly and vascular congestion Please see the official read by the radiologist below REASON: CHF PROCEDURE: CHEST AP ONLY EXAM: CHEST ONE VIEW. HISTORY: Congestive heart failure. COMPARISON: None. FINDINGS: A frontal view of the chest is obtained. The central vasculature is prominent. There is no pneumothorax or clear pleural effusion. The heart is moderately enlarged. IMPRESSION: 1. Findings suggesting mild volume overload. Moderate cardiomegaly. Assessment/Plan Assessment/Plan Acute on chronic systolic and diastolic heart failure Multifactorial respiratory failure Anemia KALANI CAD s/p PCI/stents in 2009 Hypertension Hyperlipidemia Diabetes, II GLENN vs CKD Plan ICU monitoring We have started him on BiPAP We'll check periodic arterial blood gases and try to keep his pH between 7.35 and 7.45 Consult pulmonary Consult cardiology IV Lasix Duo nebs When necessary transfusions Home meds DVT prophylaxis Full code Trend labs Prognosis guarded He is critically ill KEYA BHATT III DO Jul 05, 2019 14:46
[2019-07-05] MEDS ORDERED: PERFLUTREN PROTEIN-A MICROSPHR 0.22 MG/ML 3 ML VIAL. IV ONE (15:35)
--- NOTE | 2019-07-05 16:14 | NUR ---
Patient arrived to room 209 via wheelchair from ICU at 1542. Patient A&OX4. No complaints of pain. Echo currently being done.
[2019-07-05] MEDS: CARVEDILOL 12.5 MG TABLET. PO SCH (17:30)
[2019-07-05 21:13] LABS: HEMATOCRIT 24.8 % (39.0-53.0); HEMOGLOBIN 8.1 g/dL (13.0-17.5)
[2019-07-05] MEDS: ENOXAPARIN 40 MG/0.4 ML SYRINGE. SQ SCH (21:20)
[2019-07-05] MEDS: ATORVASTATIN CALCIUM 40 MG TABLET. PO SCH (21:21)
[2019-07-05] MEDS: amLODIPine BESYLATE 10 MG TABLET PO SCH (21:21)
[2019-07-05] MEDS: INSULIN GLARGINE SYRINGE. SQ SCH (21:26)
[2019-07-06] VITALS (8 sets, daily range): BP systolic 138–170; BP diastolic 64–77
--- NOTE | 2019-07-06 02:06 | CONS ---
DATE OF CONSULTATION: 07/05/2019 ATTENDING PHYSICIAN: Dr. Hanna. REASON FOR CONSULTATION: The patient is seen in pulmonary consultation at the request of Dr. Hanna for respiratory failure requiring noninvasive ventilation. HISTORY OF PRESENT ILLNESS: The patient is a 68-year-old who was initially admitted on 07/04/2019 at [facility] with increasing shortness of air. The patient was found to have a hemoglobin of 5.1. He was given 2 units of packed red blood cells. He was transferred to [place] for further evaluation. He is currently on BiPAP. I was asked to see him in consultation. The patient reports that he has had epistaxis now for approximately a week to two. He was actually seen at [facility]. He had nasal packing and they never did perform any further evaluation. The patient does take aspirin a day. He is taking ldva-uzu-fixatlv fish oil tablets. No other supplements. He is a lifetime nonsmoker. He is currently undergoing transfusion. He feels better. He has less short of air. PAST MEDICAL HISTORY: 1. Hypertension. 2. Type 2 diabetes. 3. Dyslipidemia. 4. Coronary artery disease with previous left heart catheterization in 2009. 5. Chronic leukocytosis and neutrophilia. 6. Chronic diastolic heart failure, ejection fraction of 60%. 7. Obstructive sleep apnea. The patient is on CPAP at home. 8. Chronic kidney disease. PAST SURGICAL HISTORY: As above. MEDICATIONS: List was reviewed. ALLERGIES: No known drug allergies. REVIEW OF SYSTEMS: CONSTITUTIONAL: No fever or chills. EYES: No change in visual acuity. HENT: No nasal congestion, no sore throat. PULMONARY: As indicated above. CARDIOVASCULAR: No chest pain. No pressure. GASTROINTESTINAL: No nausea, vomiting, diarrhea. GENITOURINARY: No dysuria or frequency. MUSCULOSKELETAL: No localized muscle aches or joint pains. SKIN: No new skin rashes. NEUROLOGIC: No headaches, diplopia or blurred vision. PHYSICAL EXAMINATION: GENERAL: The patient was in no respiratory distress. He was taken off of BiPAP. His O2 saturation was maintained above 92% on 3 liters. HEENT: Eyes, the sclerae were nonicteric. NECK: Jugular venous distention was not elevated and could not be assessed secondary to body habitus. CHEST: Full expansion. LUNGS: Adequate flow, no wheezes. CARDIOVASCULAR: Regular rate and rhythm with S1, S2, no S3. ABDOMEN: Obese. EXTREMITIES: No clubbing, cyanosis. Minimal edema. NEUROLOGICAL: The patient was awake, alert, following commands. A detailed neuro exam was not performed. LABORATORY DATA: Arterial blood gas revealed a pH of 7.41, PaCO2 of 40, PaO2 100. White count was elevated. Hemoglobin of 6.7, hematocrit of 20. Electrolytes were noted. BUN and creatinine of 24 and 1.4. AST was 11. Albumin was low at 2.1. IMPRESSION: 1. Acute hypoxemic respiratory failure. 2. Acute blood loss anemia. 3. Epistaxis. 4. Severe protein malnutrition present upon admission. 5. Type 2 diabetes. 6. Coronary artery disease with previous left heart catheterization and PCI in 2009. 7. Hyperlipidemia. 8. Dyeqz-qi-dapggyf kidney disease. PLAN: 1. We will continue current support with oxygen supplementation. 2. Transfuse. 3. Diurese as needed. 4. Follow Cardiology input. 5. CPAP for obstructive sleep apnea. I do appreciate the privilege in sharing the patient's care. ZACKARY ANTONIO MD DR: JANES/danielle JOB#: [id number] / [id number]
[2019-07-06] MEDS: PANTOPRAZOLE IV PUSH 40 MG VIAL. IVP SCH (08:01)
[2019-07-06] MEDS: TAMSULOSIN 0.4 MG CAP.ER.24H. PO SCH (08:06)
[2019-07-06] MEDS: LACTOBACILLUS RHAMNOSUS GG 1 CAPSULE. PO SCH (08:06)
[2019-07-06] MEDS: CARVEDILOL 12.5 MG TABLET. PO SCH (08:07)
--- NOTE | 2019-07-06 08:29 | CARD ---
MR#: [id number] Date of Study: 07/05/2019 Ordering Physician: TJ ALTAMIRANO, Referring Physician: TJ ALTAMIRANO, Tech: Ledy Spann RDCS APPROVED REPORT EXAM: Two-dimensional and M-mode echocardiogram with Doppler and color Doppler. Other Information Quality : Technically Limited Technically limited study due to body habitus and uncooperative patient. INDICATION Congestive Heart Failure RISK FACTORS Hypertension Obesity Hyperlipidemia Diabetes 2D DIMENSIONS RVDd4.2 (2.9-3.5cm)Left Atrium(2D)3.6 (1.6-4.0cm) IVSd1.5 (0.7-1.1cm)Aortic Root(2D)3.8 (2.0-3.7cm) LVDd4.8 (3.9-5.9cm)LVOT Diameter2.3 (1.8-2.4cm) PWd1.5 (0.7-1.1cm)LVDs3.7 (2.5-4.0cm) FS (%) 23.3 %SV49.5 ml LVEF(%)46.5 (>50%) Aortic Valve AoV Peak Genaro.150.3cm/Bia Peak GR.9.0mmHg LVOT Peak Genaro.118.6cm/sAVA (VMAX)3.28cm2 Mitral Valve MV E Ayifxgcc673.2cm/sMV DECEL [id number] MV A Zjmysitx049.6cm/sE/A Ratio1.2 MV A [id number] Pulmonary Valve PV Peak Ihtltfxr244.7cm/s Pulmonary Vein S1 Rjluayvx43.8cm/sD2 Igpvkdvw07.1cm/s PVa [id number] LEFT VENTRICLE The left ventricle is normal size. There is moderate concentric left ventricular hypertrophy. The lef t ventricular systolic function is normal. The Ejection Fraction is 60-65%. There is normal LV segmen tee wall motion. Transmitral Doppler flow pattern is Grade II-pseudonormal filling dynamics. There is no ventricular septal defect visualized. RIGHT VENTRICLE The right ventricle is normal size. The right ventricular systolic function is normal. ATRIA The left atrium is moderately dilated. The right atrium size is upper limits of normal. The interatri al septum is intact with no evidence for an atrial septal defect or patent foramen ovale as noted on 2-D or Doppler imaging. AORTIC VALVE The aortic valve is normal in structure and function. Doppler and Color Flow revealed no significant aortic regurgitation. There is no significant aortic valvular stenosis. MITRAL VALVE The mitral valve is normal in structure and function. There is no mitral valve stenosis. Doppler and Color-flow revealed mild mitral regurgitation. TRICUSPID VALVE The tricuspid valve is normal in structure and function. Doppler and Color Flow revealed no tricuspid valve regurgitation noted. Unable to assess PA pressure. There is no tricuspid valve stenosis. PULMONIC VALVE The pulmonic valve is not well visualized. No pulmonic valvular regurgitation visualized. There is no pulmonic valvular stenosis. GREAT VESSELS The aortic root is mildly enlarged at 3.8 cm. The ascending aorta is mildly dilated at 4.0 cm The IVC is normal in size and collapses >50% with inspiration. PERICARDIAL EFFUSION There is no pleural effusion. There is no evidence of significant pericardial effusion. Critical Notification Critical Value: No <Conclusion> The left ventricular systolic function is normal. The Ejection Fraction is 60-65%. There is normal LV segmental wall motion. Doppler and Color-flow revealed mild mitral regurgitation. There is no evidence of significant pericardial effusion. Signed by : Danielito Cortes, Electronically Approved : 07/06/2019 08:29:05
[2019-07-06] MEDS: LISINOPRIL 20 MG TABLET PO SCH (08:55)
[2019-07-06] MEDS: INSULIN LISPRO 300 UNITS/3 ML VIAL. SQ SCH ×8 (09:08→21:00)
--- NOTE | 2019-07-06 11:39 | PDOC ---
TJ ALTAMIRANO REGIONAL ECONOMIST 07/06/19 1139: CARDIO Progress Notes Date and Time Date of Service 07/06/19 Time of Evaluation 1120 Subjective Subjective: No Chest Pain, No shortness of breath, No Palpitations, Other (denies any SOA. Is on BiPAP) Vitals Vitals Vital Signs Date Time Temp Pulse Resp B/P (MAP) Pulse Ox O2 Delivery O2 Flow Rate FiO2 07/06/19 11:24 98.0 61 18 146/68 (94) 98 Nasal Cannula 2.0 98.0 Weight Weight [ ] Input and Output Intake and Output Intake and Output 07/06/19 07:00 Intake Total 3109.8 ml Output Total 4000 ml Balance -890.2 ml Intake Oral 1600 ml IV Total 314.8 ml Blood Product 300 ml Blood Product IV Normal Saline Flush 895 ml Output Urine Total 4000 ml Laboratory Labs Laboratory Tests Test 07/05/19 12:11 07/05/19 17:26 07/05/19 20:50 07/05/19 21:03 Glucose (Fingerstick) 206 mg/dL (70-99) 171 mg/dL (70-99) 154 mg/dL (70-99) Hemoglobin 8.1 g/dL (13.0-17.5) Hematocrit 24.8 % (39.0-53.0) Test 07/06/19 07:25 07/06/19 11:27 Glucose (Fingerstick) 161 mg/dL (70-99) 165 mg/dL (70-99) Physical Exam HEENT: Neck Supple W Full Motion Chest: Symmetric LUNGS: Other (on RA. ) Heart: S1S2, RRR, murmurs (2/6 systolic murmur ), other Abdomen: Soft N/T, Other (obese ) Extremities: Other (trace bilateral LE edema ) Neurology: alert, oriented, follow commands Assessment Assessment 1. Weakness, fatigue in the setting of profound anemia; s/p multiple transfusions; no obvious bleeding 2. Acute on chronic probable diastolic CHF; Echo with preserved LV systolic function 3. Acute respiratory failure, multifactiorial. appears compensated 4. KALANI with CPAP 5. CAD s/p PCI/stents in 2009. clinically stable. CP free 6. Hypertension; controlled 7. Hyperlipidemia; statin therapy 8. Diabetes, II; as per PCP 9. GLENN vs CKD 10. Bradycardia, sinus. Periods in the lower 40's. No pauses. Recommendation Start oral Lasix Hold coreg for now; unclear why patient was on TID dosing Will resume at 6.25mg if bradycardia resolves Secondary prevent as able No ASA with anemia. Follow GI recs Consider further ischemic evaluation on an outpatient basis Follow up in our office with Dr. Henry as scheduled. WILEY HENRY MD 07/07/19 0716: CARDIO Progress Notes Plan Plan Late entry for 07/06/2019 Patient seen and examined. Agree with above nurse practitioner note. He is significantly improved compared to his initial presentation to [facility]. Agree with medication titration as noted above. Continue GI evaluation as indic ated. Supportive care from a cardiac standpoint at this time. He will f/u with us in the office. Thanks TJ ALTAMIRANO APRN Jul 06, 2019 11:39 WILEY HENRY MD Jul 07, 2019 07:16
--- NOTE | 2019-07-06 11:56 | NUR ---
SS following for discharge planning. SS reviewed pt chart. Pt is from home with spouse and is currently requiring oxygen. SS will continue to follow for discharge planning.
--- NOTE | 2019-07-06 12:14 | PDOC ---
[employer] PROGRESS NOTE Chief Complaint Chief Complaint Acute on chronic systolic and diastolic heart failure Multifactorial respiratory failure Anemia KALANI CAD s/p PCI/stents in 2010 Hypertension Hyperlipidemia Diabetes, II GLENN vs CKD Acute tubular necrosis History of Present Illness History of Present Illness 07/06/19 Pt seen and examined He was laying in bed He was on nasal cannula. Reports he is not on O2 at home Pt reports he works out 3 x a week at a gym for 1.5 hr each time. He has had some success with weight loss through exercise DW pt DW RN Chart reviewed Vitals/I&O Vitals/I&O: Vital Signs Date Time Temp Pulse Resp B/P (MAP) Pulse Ox O2 Delivery O2 Flow Rate FiO2 07/06/19 11:24 98.0 61 18 146/68 (94) 98 Nasal Cannula 2.0 98.0 I & O 07/05/19 07/05/19 07/06/19 15:00 23:00 07:00 Intake Total 1509.8 ml 800 ml 800 ml Output Total 700 ml 2300 ml 1000 ml Balance 809.8 ml -1500 ml -200 ml Physical Exam General: Alert, Cooperative, No acute distress Heart: Regular rate Lungs: Clear Abdomen: No tenderness Extremities: No cyanosis Skin: No rashes, No breakdown, No significant lesion Labs Labs: Laboratory Tests Test 07/05/19 12:11 07/05/19 17:26 07/05/19 20:50 07/05/19 21:03 Glucose (Fingerstick) 206 mg/dL (70-99) 171 mg/dL (70-99) 154 mg/dL (70-99) Hemoglobin 8.1 g/dL (13.0-17.5) Hematocrit 24.8 % (39.0-53.0) Test 07/06/19 07:25 07/06/19 11:27 Glucose (Fingerstick) 161 mg/dL (70-99) 165 mg/dL (70-99) Review of Systems Review of Systems: no c/o nausea no c/o fevers/chills no c/o weakness Assessment and Plan Assessmemt and Plan Assessment/Plan Acute on chronic systolic and diastolic heart failure Multifactorial respiratory failure Anemia KALANI CAD s/p PCI/stents in 2010 Hypertension Hyperlipidemia Diabetes, II GLENN vs CKD Plan Consult heme/onc and GI for anemia Anemia workup When necessary transfusions Remove folly catheter Trend labs Pulmonary/Cardiology following Continue Lasix Duo nebs Continue home meds DVT prophylaxis Full code Comment Review of Relevant I have reviewed the following items cruz (where applicable) has been applied. Medications: Current Medications Medications (Trade) Dose Ordered Sig/John Route PRN Reason Start Time Stop Time Status Last Admin Dose Admin Amlodipine Besylate (Norvasc) 10 mg HS PO 07/05/19 21:00 07/05/19 21:21 Insulin Glargine (Lantus Syringe) 15 unit HS SQ 07/05/19 21:00 07/05/19 21:26 Insulin Human Lispro (HumaLOG) 5 units TIDWMEALS SQ 07/05/19 17:00 07/06/19 09:09 Lisinopril (Prinivil) 40 mg DAILY PO 07/05/19 14:00 07/06/19 08:55 Tamsulosin HCl (Flomax) 0.4 mg DAILY PO 07/05/19 14:00 07/06/19 08:06 Carvedilol (Coreg) 25 mg TIDWMEALS PO 07/05/19 17:00 07/06/19 11:54 DC 07/06/19 08:07 Lactobacillus Rhamnosus (Culturelle) 1 cap DAILY PO 07/05/19 14:00 07/06/19 08:06 Atorvastatin Calcium (Lipitor) 80 mg HS PO 07/05/19 21:00 07/05/19 21:21 NOVANIAL K III DO Jul 06, 2019 12:14
--- NOTE | 2019-07-06 12:23 | PDOC2 ---
GI CONSULT Reason For Consult: Anemia HPI: HPI: 68 y/o male who reports severe nosebleed of the past couple weeks. Treated at [facility]. Later on felt weak and went to [facility], transferred here. Noted w/ severe anemia and iron deficiency - Hgb 5.1, now 8.1 s/p transfusions. Feels a little better. Reflux in the past, none recently and has been on Protonix QD since he had a heart attack. No dysphagia, n/v, abd pain, diarrhea, constipation, hematoche zandra, or melena. Intentional weight loss. No previous EGD. Colonoscopy ~3 years ago at the [facility] in [place], reportedly normal and told no need to return for 10 years. No GB, pancreas, or PUD history. Had Hepatitis A he thinks when he was a child. Daily ASA, sometimes an extra one for headaches. Also daily Aleve. Denies h/o anemia. PMH: PMH: CAD w/ stent, KALANI, HTN, HLD, DM, CKD FH: Family History: No pertinent hx (denies GI cancers), Cancer (brain - paternal relatives) Social History: Smoke: No ALCOHOL: none Drugs: None ROS: GEN: Denies fevers, chills, sweats HEENT: Denies blurred vision, sore throat CV: Denies chest pain RESP: Denies shortness of air, cough GI: Per HPI : Denies hematuria, dysuria ENDO: Denies weight changes NEURO: Denies confusion, dizziness MSK: +weakness SKIN: Denies jaundice, pruritus Vitals: Vitals: Vital Signs Date Time Temp Pulse Resp B/P (MAP) Pulse Ox O2 Delivery O2 Flow Rate FiO2 07/06/19 11:24 98.0 61 18 146/68 (94) 98 Nasal Cannula 2.0 98.0 Labs: Labs: Laboratory Tests Test 07/05/19 17:26 07/05/19 20:50 07/05/19 21:03 07/06/19 07:25 Glucose (Fingerstick) 171 mg/dL (70-99) 154 mg/dL (70-99) 161 mg/dL (70-99) Hemoglobin 8.1 g/dL (13.0-17.5) Hematocrit 24.8 % (39.0-53.0) Test 07/06/19 11:27 Glucose (Fingerstick) 165 mg/dL (70-99) Allergies: Coded Allergies: No Known Drug Allergies (Unverified , 06/26/16) Medications: Current Medications Medications (Trade) Dose Ordered Sig/John Route PRN Reason Start Time Stop Time Status Last Admin Dose Admin Amlodipine Besylate (Norvasc) 10 mg HS PO 07/05/19 21:00 07/05/19 21:21 Insulin Glargine (Lantus Syringe) 15 unit HS SQ 07/05/19 21:00 07/05/19 21:26 Insulin Human Lispro (HumaLOG) 5 units TIDWMEALS SQ 07/05/19 17:00 07/06/19 09:09 Lisinopril (Prinivil) 40 mg DAILY PO 07/05/19 14:00 07/06/19 08:55 Tamsulosin HCl (Flomax) 0.4 mg DAILY PO 07/05/19 14:00 07/06/19 08:06 Carvedilol (Coreg) 25 mg TIDWMEALS PO 07/05/19 17:00 07/06/19 11:54 DC 07/06/19 08:07 Lactobacillus Rhamnosus (Culturelle) 1 cap DAILY PO 07/05/19 14:00 07/06/19 08:06 Atorvastatin Calcium (Lipitor) 80 mg HS PO 07/05/19 21:00 07/05/19 21:21 Imaging: Imaging: CXR IMPRESSION: 1. Findings suggesting mild volume overload. Moderate cardiomegaly. Echocardiogram <Conclusion> The left ventricular systolic function is normal. The Ejection Fraction is 60-65%. There is normal LV segmental wall motion. Doppler and Color-flow revealed mild mitral regurgitation. There is no evidence of significant pericardial effusion. PE: GEN: NAD HEENT: Atraumatic, PERRL LUNGS: clear anteriorly HEART: distant - rate 60 on monitor ABD: large, NABS, soft, non-tender EXTREMITY: trace BLE edema SKIN: No rashes, no jaundice NEURO/PSYCH: A & O 3 A/P: A/P: Weakness Profound anemia - improved w/ transfusions, iron deficient @ [facility] - no obvious GI bleeding though apparently severe epistaxis recently Probable CHF, resp failure H/o heartburn on PPI - no previous EGD CRC screen - UTD H/o CAD on ASA Daily NSAID use - Aleve -- Change to PO PPI since eating. Will d/w Dr. Mahan - probably would benefit from EGD, will review timing. JULISSA FUNK Jul 06, 2019 12:23
[2019-07-06] MEDS: FUROSEMIDE 40 MG TABLET. PO SCH (12:59)
--- NOTE | 2019-07-06 15:06 | PDOC ---
PULMONARY PROGRESS NOTES Subjective PT NOT SOA TODAY Vitals Vital Signs Date Time Temp Pulse Resp B/P (MAP) Pulse Ox O2 Delivery O2 Flow Rate FiO2 07/06/19 11:24 98.0 61 18 146/68 (94) 98 Nasal Cannula 2.0 98.0 ROS: No Nausea, No Chest Pain, No Abdominal Pain, No Increase Cough General: Alert Lungs: Clear Cardiovascular: S1 Abdomen: Soft Neuro Exam: Alert Extremities: No Edema Skin: Warm Labs Laboratory Tests Test 07/04/19 20:35 07/04/19 22:00 07/05/19 00:08 07/05/19 05:40 O2 Saturation 95 % (92-99) Arterial Blood pH 7.43 (7.35-7.45) Arterial Blood pCO2 at Patient Temp 38 mmHg (35-46) Arterial Blood pO2 at Patient Temp 79 mmHg (65-108) Arterial Blood HCO3 25 mmol/L (21-28) Arterial Blood Base Excess 0 mmol/L (-3-3) FiO2 35 White Blood Count 15.5 x10^3/uL (4.0-11.0) Red Blood Count 2.37 x10^6/uL (4.30-5.70) Hemoglobin 6.6 g/dL (13.0-17.5) Hematocrit 20.3 % (39.0-53.0) Mean Corpuscular Volume 85 fL (79-100) Mean Corpuscular Hemoglobin 28 pg (25-35) Mean Corpuscular Hemoglobin Concent 33 g/dL (31-37) Red Cell Distribution Width 15.9 % (11.5-14.5) Platelet Count 310 x10^3/uL (140-400) Neutrophils (%) (Auto) 78 % (31-73) Lymphocytes (%) (Auto) 10 % (24-48) Monocytes (%) (Auto) 9 % (0-9) Eosinophils (%) (Auto) 2 % (0-3) Basophils (%) (Auto) 1 % (0-3) Neutrophils # (Auto) 12.2 x10^3/uL (1.8-7.7) Lymphocytes # (Auto) 1.5 x10^3/uL (1.0-4.8) Monocytes # (Auto) 1.5 x10^3/uL (0.0-1.1) Eosinophils # (Auto) 0.3 x10^3/uL (0.0-0.7) Basophils # (Auto) 0.1 x10^3/uL (0.0-0.2) Sodium Level 144 mmol/L (136-145) Potassium Level 4.0 mmol/L (3.5-5.1) Chloride Level 108 mmol/L (98-107) Carbon Dioxide Level 28 mmol/L (21-32) Anion Gap 8 (6-14) Blood Urea Nitrogen 23 mg/dL (8-26) Creatinine 1.5 mg/dL (0.7-1.3) Estimated GFR (Cockcroft-Gault) 46.7 BUN/Creatinine Ratio 15 (6-20) Glucose Level 161 mg/dL (70-99) Calcium Level 7.5 mg/dL (8.5-10.1) Total Bilirubin 1.1 mg/dL (0.2-1.0) Aspartate Amino Transf (AST/SGOT) 14 U/L (15-37) Alanine Aminotransferase (ALT/SGPT) 17 U/L (16-63) Alkaline Phosphatase 69 U/L (46-116) Total Protein 5.5 g/dL (6.4-8.2) Albumin 2.1 g/dL (3.4-5.0) Albumin/Globulin Ratio 0.6 (1.0-1.7) Glucose (Fingerstick) 171 mg/dL (70-99) 192 mg/dL (70-99) Test 07/05/19 06:30 07/05/19 08:00 07/05/19 12:11 07/05/19 17:26 White Blood Count 13.8 x10^3/uL (4.0-11.0) Red Blood Count 2.41 x10^6/uL (4.30-5.70) Hemoglobin 6.7 g/dL (13.0-17.5) Hematocrit 20.5 % (39.0-53.0) Mean Corpuscular Volume 85 fL (79-100) Mean Corpuscular Hemoglobin 28 pg (25-35) Mean Corpuscular Hemoglobin Concent 33 g/dL (31-37) Red Cell Distribution Width 15.9 % (11.5-14.5) Platelet Count 306 x10^3/uL (140-400) Neutrophils (%) (Auto) 76 % (31-73) Lymphocytes (%) (Auto) 11 % (24-48) Monocytes (%) (Auto) 10 % (0-9) Eosinophils (%) (Auto) 3 % (0-3) Basophils (%) (Auto) 1 % (0-3) Neutrophils # (Auto) 10.5 x10^3/uL (1.8-7.7) Lymphocytes # (Auto) 1.5 x10^3/uL (1.0-4.8) Monocytes # (Auto) 1.3 x10^3/uL (0.0-1.1) Eosinophils # (Auto) 0.4 x10^3/uL (0.0-0.7) Basophils # (Auto) 0.1 x10^3/uL (0.0-0.2) Sodium Level 144 mmol/L (136-145) Potassium Level 4.2 mmol/L (3.5-5.1) Chloride Level 109 mmol/L (98-107) Carbon Dioxide Level 30 mmol/L (21-32) Anion Gap 5 (6-14) Blood Urea Nitrogen 24 mg/dL (8-26) Creatinine 1.4 mg/dL (0.7-1.3) Estimated GFR (Cockcroft-Gault) 50.5 BUN/Creatinine Ratio 17 (6-20) Glucose Level 206 mg/dL (70-99) Calcium Level 7.9 mg/dL (8.5-10.1) Total Bilirubin 1.1 mg/dL (0.2-1.0) Aspartate Amino Transf (AST/SGOT) 11 U/L (15-37) Alanine Aminotransferase (ALT/SGPT) 18 U/L (16-63) Alkaline Phosphatase 65 U/L (46-116) Ammonia < 10 mcmol/L (11-34) Total Protein 5.6 g/dL (6.4-8.2) Albumin 2.2 g/dL (3.4-5.0) Albumin/Globulin Ratio 0.6 (1.0-1.7) Triglycerides Level 70 mg/dL (0-150) Cholesterol Level 95 mg/dL (0-200) LDL Cholesterol, Calculated 51 mg/dL (0-100) VLDL Cholesterol, Calculated 14 mg/dL (0-40) Non-HDL Cholesterol Calculated 65 mg/dL (0-129) HDL Cholesterol 30 mg/dL (40-60) Cholesterol/HDL Ratio 3.2 Thyroid Stimulating Hormone (TSH) 0.698 uIU/mL (0.358-3.74) O2 Saturation 97 % (92-99) Arterial Blood pH 7.41 (7.35-7.45) Arterial Blood pCO2 at Patient Temp 40 mmHg (35-46) Arterial Blood pO2 at Patient Temp 100 mmHg (65-108) Arterial Blood HCO3 25 mmol/L (21-28) Arterial Blood Base Excess 0 mmol/L (-3-3) FiO2 35 Glucose (Fingerstick) 206 mg/dL (70-99) 171 mg/dL (70-99) Test 07/05/19 20:50 07/05/19 21:03 07/06/19 07:25 07/06/19 11:27 Hemoglobin 8.1 g/dL (13.0-17.5) Hematocrit 24.8 % (39.0-53.0) Glucose (Fingerstick) 154 mg/dL (70-99) 161 mg/dL (70-99) 165 mg/dL (70-99) Test 07/06/19 14:35 Red Blood Count 2.87 x10^6/uL (4.30-5.70) Absolute Reticulocyte Count 0.101 x10^6/uL (0.020-0.120) Percent Reticulocyte Count 3.5 % (0.5-2.3) Immature Reticulocyte Fraction 0.53 (0.20-0.60) Laboratory Tests Test 07/05/19 17:26 07/05/19 20:50 07/05/19 21:03 07/06/19 07:25 Glucose (Fingerstick) 171 mg/dL (70-99) 154 mg/dL (70-99) 161 mg/dL (70-99) Hemoglobin 8.1 g/dL (13.0-17.5) Hematocrit 24.8 % (39.0-53.0) Test 07/06/19 11:27 07/06/19 14:35 Glucose (Fingerstick) 165 mg/dL (70-99) Red Blood Count 2.87 x10^6/uL (4.30-5.70) Absolute Reticulocyte Count 0.101 x10^6/uL (0.020-0.120) Percent Reticulocyte Count 3.5 % (0.5-2.3) Immature Reticulocyte Fraction 0.53 (0.20-0.60) Medications Active Scripts Medications Dose Route/Sig Max Daily Dose Days Date Category Atorvastatin Calcium 40 Mg Tablet 80 Mg PO HS 07/05/19 Reported Amlodipine Besylate 10 Mg Tablet 10 Mg PO HS 07/05/19 Reported Flomax (Tamsulosin Hcl) 0.4 Mg Cap.er.24h 0.4 Mg PO DAILY 07/05/19 Reported Lisinopril 40 Mg Tablet 40 Mg PO DAILY 07/05/19 Reported Culturelle (Lactobacillus Rhamnosus Gg) 1 Each Capsule 1 Cap PO DAILY 30 07/05/19 Reported Humalog (Insulin Lispro) 100 Unit/1 Ml Vial 5 Unit SQ TIDAC 07/05/19 Reported Lantus (Insulin Glargine,Hum.rec.anlog) 100 Unit/1 Ml Vial 15 Unit SQ HS 07/05/19 Reported Furosemide 40 Mg Tablet 40 Mg PO DAILY 07/05/19 Reported Carvedilol 25 Mg Tablet 25 Mg PO TID 07/05/19 Reported Impression . IMPRESSION: 1. Acute hypoxemic respiratory failure. 2. Acute blood loss anemia. 3. Epistaxis. 4. Severe protein malnutrition present upon admission. 5. Type 2 diabetes. 6. Coronary artery disease with previous left heart catheterization and PCI in 2009. 7. Hyperlipidemia. 8. Crzit-et-lbcetgu kidney disease. Plan . 07/06 BETTER TODAY ANTICIPATE HOME IN AM 07/05 1. We will continue current support with oxygen supplementation. 2. Transfuse. 3. Diurese as needed. 4. Follow Cardiology input. 5. CPAP for obstructive sleep apnea. ZACKARY ANTONIO MD Jul 06, 2019 15:06
[2019-07-06] MEDS: FERROUS SULFATE 325 MG TABLET. PO SCH (17:54)
[2019-07-06] MEDS: INSULIN GLARGINE SYRINGE. SQ SCH (21:00)
[2019-07-06] MEDS: ATORVASTATIN CALCIUM 40 MG TABLET. PO SCH (21:30)
[2019-07-06] MEDS: ENOXAPARIN 40 MG/0.4 ML SYRINGE. SQ SCH (21:30)
[2019-07-06] MEDS: amLODIPine BESYLATE 10 MG TABLET PO SCH (21:31)
--- NOTE | 2019-07-07 02:20 | CONS ---
DATE OF CONSULTATION: 07/06/2019 HEMATOLOGY AND ONCOLOGY CONSULTATION REQUESTING PHYSICIAN: Dr. Guillermo Guallpa. REASON FOR CONSULTATION: Anemia. HISTORY OF PRESENT ILLNESS: The patient is a 68-year-old gentleman who has a history of hypertension, diabetes, hyperlipidemia, coronary artery disease, and history of non-ST elevation myocardial infarction who had severe epistaxis in June of 2019 and he was treated in the [facility] and after uncontrolled attempts at packing in the [place] Emergency Department, he was transferred to [facility] on 06/24/2019. He underwent a rhinoscopy that revealed bleeding from the anterior right septum. Nasal drying and uncontrolled hypertension were thought to be contributing factors. Hemostasis was achieved with NasoPore and FloSeal. He was then recommended to pursue with nasal saline spray every 2 hours to prevent drying and rebleeding. He was advised to pursue with Afrin-soaked cotton ball placement on the anterior septum for 15 minutes with pressure if he has any rebleeding at home. He was subsequently discharged on 06/24/2019. The patient reports that the bleeding subsequently improved. His hemoglobin was 8.3 on 06/24/2019 with a WBC count of 6.7 and a platelet count of 72 at [facility]. He reports being in good health until 05/2019. He reports having had blood test done by his primary care physician, Dr. Badillo in 05/2019 and they were all unremarkable per the patient. He then had progressive shortness of breath and generalized weakness and he presented to [facility] on 07/04/2019 with a hemoglobin of 5.1. He takes aspirin once a day. He was then transferred to [facility] and he was given 3 units of PRBC transfusion in total per the patient. Hemoglobin was 6.6 on 07/04/2019, and 6.7 on 07/05/2019 and 8.1 on 07/05/2019 at 8:50 p.m. after a total of 3 units of PRBC transfusion. He denies abdominal pain, nausea or vomiting. No hematemesis, melena or hematochezia. No hemoptysis or hematuria. No history of loss of weight or loss of appetite. PAST MEDICAL HISTORY: Hypertension, diabetes, dyslipidemia, coronary artery disease, history of non-ST elevation myocardial infarction, diastolic heart failure, obstructive sleep apnea, he uses CPAP at home, chronic kidney disease. SOCIAL HISTORY: Never smoker. No alcohol abuse. FAMILY HISTORY: Positive for seizures and heart attack. REVIEW OF SYSTEMS: A 12-point review of system was performed. Pertinent positives are mentioned in the history of present illness. Rest of the system review is negative. PHYSICAL EXAMINATION: GENERAL APPEARANCE: The patient is a 68-year-old gentleman who is in no acute cardiorespiratory distress. VITAL SIGNS: Blood pressure 146/68, temperature 98 degrees, heart rate 81, respiratory rate 18, weight 135.36 kg, height 72 inches. HEENT: Atraumatic, normocephalic. Eyes, no icterus. NECK: Supple. CHEST: Bilaterally symmetrical. HEART: S1, S2 normal. ABDOMEN: Soft, nontender. CENTRAL NERVOUS SYSTEM: No focal deficits. LYMPHATICS: No lymphadenopathy. SKIN: No rashes. PSYCHOLOGIC: Mood and affect are appropriate. LABORATORY DATA: Hemoglobin was 5.1 at [facility] on 07/04/2019. Hemoglobin at [facility] was 6.6 on 07/04/2019 and 6.7 on 07/05/2019 and 8.1 on 07/05/2019 at 8:50 p.m. He reports having had a total of 3 units of PRBC transfusion. WBC 13.8 with a platelet count 306 on 07/05/2019. Sodium 144, potassium 4.2, creatinine 1.4, calcium 7.9, total bilirubin 1.1, AST 11, ALT 18, alkaline phosphatase 65, total protein 5.6, albumin 2.2. IMPRESSION AND PLAN: 1. Normochromic normocytic anemia. The patient had severe anemia on 07/04/2019 with a hemoglobin of 5.1 at [facility]. He has received a total of 3 units of PRBC transfusion and the hemoglobin was 8.1 on 07/05/2019. Review of the prior records indicates that his hemoglobin was 8.3 at [facility] on 06/24/2019. The patient reports that his labs are unremarkable in 05/2019. I suspect that this is an acute onset anemia due to severe nose bleeding. He has already received 3 units of PRBC transfusion. I will also obtain iron studies and B12 level. I agree to consult Gastroenterology. 2. Severe epistaxis, right side, status post rhinoscopy at [facility] on 06/24/2019 that revealed bleeding from the right anterior septum. Hemostasis was achieved with NasoPore and FloSeal. If he rebleeds, then [facility] recommended to spray Afrin liberally to both nares. He has not had any more episodes of bleeding. 3. Coronary artery disease with history of non-ST segment elevation myocardial infarction in the past. 4. Dyspnea due to anemia, improving. Appreciate pulmonary consultation. I discussed with registered nurse and I discussed with Gastroenterology. DOTTIE REA MD DR: JENNA/danielle JOB#: [id number] / [id number]
[2019-07-07 02:55] VITALS: BP 153/70
[2019-07-07 04:42] LABS: BASO # 0.1 x10^3/uL (0.0-0.2); BASO % 1 % (0-3); EOS # 0.4 x10^3/uL (0.0-0.7); EOS % 3 % (0-3); HEMATOCRIT 24.5 % (39.0-53.0); HEMOGLOBIN 8.1 g/dL (13.0-17.5); LYMPH # 2.2 x10^3/uL (1.0-4.8); LYMPH % 17 % (24-48); MEAN CORPUSCULAR HEMOGLOBIN 28 pg (25-35); MEAN CORPUSCULAR HGB CONC 33 g/dL (31-37); MEAN CORPUSCULAR VOLUME 84 fL (79-100); MONO # 1.3 x10^3/uL (0.0-1.1); MONO % 10 % (0-9); NEUT # 9.5 x10^3/uL (1.8-7.7); NEUT % 71 % (31-73); PLATELET COUNT 359 x10^3/uL (140-400); RED CELL DISTRIBUTION WIDTH 15.3 % (11.5-14.5); WHITE BLOOD COUNT 13.5 x10^3/uL (4.0-11.0)
[2019-07-07 05:01] LABS: CALCIUM 8.1 mg/dL (8.5-10.1); CREATININE 1.4 mg/dL (0.7-1.3); GFR 50.5; POTASSIUM 3.6 mmol/L (3.5-5.1)
[2019-07-07] MEDS ORDERED: IV RINGERS,LACTATED 1000ML 1,000 ML IV ONE (06:45)
[2019-07-07 07:01] VITALS: BP 147/65
[2019-07-07] MEDS ORDERED: PANTOPRAZOLE 40 MG TABLET.DR. PO SCH (07:30)
--- NOTE | 2019-07-07 08:26 | PDOC ---
PULMONARY PROGRESS NOTES Subjective PT NOT SOA TODAY Vitals Vital Signs Date Time Temp Pulse Resp B/P (MAP) Pulse Ox O2 Delivery O2 Flow Rate FiO2 07/07/19 07:01 97.8 64 18 147/65 (92) 90 Nasal Cannula 97.8 07/07/19 02:55 2.0 ROS: No Nausea, No Chest Pain, No Abdominal Pain, No Increase Cough General: Alert Lungs: Clear Cardiovascular: S1 Abdomen: Soft Neuro Exam: Alert Extremities: No Edema Skin: Warm Labs Laboratory Tests Test 07/05/19 12:11 07/05/19 17:26 07/05/19 20:50 07/05/19 21:03 Glucose (Fingerstick) 206 mg/dL (70-99) 171 mg/dL (70-99) 154 mg/dL (70-99) Hemoglobin 8.1 g/dL (13.0-17.5) Hematocrit 24.8 % (39.0-53.0) Test 07/06/19 07:25 07/06/19 11:27 07/06/19 14:35 07/06/19 17:53 Glucose (Fingerstick) 161 mg/dL (70-99) 165 mg/dL (70-99) 167 mg/dL (70-99) Red Blood Count 2.87 x10^6/uL (4.30-5.70) Absolute Reticulocyte Count 0.101 x10^6/uL (0.020-0.120) Percent Reticulocyte Count 3.5 % (0.5-2.3) Immature Reticulocyte Fraction 0.53 (0.20-0.60) Iron Level 13 ug/dL (65-175) Total Iron Binding Capacity 258 ug/dL (250-450) Iron Saturation 5 % (15-34) Ferritin 57 ng/mL (26-388) Vitamin B12 Level 558 pg/mL (247-911) Test 07/06/19 21:04 07/07/19 03:30 07/07/19 07:04 Glucose (Fingerstick) 120 mg/dL (70-99) 171 mg/dL (70-99) White Blood Count 13.5 x10^3/uL (4.0-11.0) Red Blood Count 2.90 x10^6/uL (4.30-5.70) Hemoglobin 8.1 g/dL (13.0-17.5) Hematocrit 24.5 % (39.0-53.0) Mean Corpuscular Volume 84 fL (79-100) Mean Corpuscular Hemoglobin 28 pg (25-35) Mean Corpuscular Hemoglobin Concent 33 g/dL (31-37) Red Cell Distribution Width 15.3 % (11.5-14.5) Platelet Count 359 x10^3/uL (140-400) Neutrophils (%) (Auto) 71 % (31-73) Lymphocytes (%) (Auto) 17 % (24-48) Monocytes (%) (Auto) 10 % (0-9) Eosinophils (%) (Auto) 3 % (0-3) Basophils (%) (Auto) 1 % (0-3) Neutrophils # (Auto) 9.5 x10^3/uL (1.8-7.7) Lymphocytes # (Auto) 2.2 x10^3/uL (1.0-4.8) Monocytes # (Auto) 1.3 x10^3/uL (0.0-1.1) Eosinophils # (Auto) 0.4 x10^3/uL (0.0-0.7) Basophils # (Auto) 0.1 x10^3/uL (0.0-0.2) Sodium Level 142 mmol/L (136-145) Potassium Level 3.6 mmol/L (3.5-5.1) Chloride Level 106 mmol/L (98-107) Carbon Dioxide Level 28 mmol/L (21-32) Anion Gap 8 (6-14) Blood Urea Nitrogen 18 mg/dL (8-26) Creatinine 1.4 mg/dL (0.7-1.3) Estimated GFR (Cockcroft-Gault) 50.5 Glucose Level 162 mg/dL (70-99) Calcium Level 8.1 mg/dL (8.5-10.1) Laboratory Tests Test 07/06/19 11:27 07/06/19 14:35 07/06/19 17:53 07/06/19 21:04 Glucose (Fingerstick) 165 mg/dL (70-99) 167 mg/dL (70-99) 120 mg/dL (70-99) Red Blood Count 2.87 x10^6/uL (4.30-5.70) Absolute Reticulocyte Count 0.101 x10^6/uL (0.020-0.120) Percent Reticulocyte Count 3.5 % (0.5-2.3) Immature Reticulocyte Fraction 0.53 (0.20-0.60) Iron Level 13 ug/dL (65-175) Total Iron Binding Capacity 258 ug/dL (250-450) Iron Saturation 5 % (15-34) Ferritin 57 ng/mL (26-388) Vitamin B12 Level 558 pg/mL (247-911) Test 07/07/19 03:30 07/07/19 07:04 White Blood Count 13.5 x10^3/uL (4.0-11.0) Red Blood Count 2.90 x10^6/uL (4.30-5.70) Hemoglobin 8.1 g/dL (13.0-17.5) Hematocrit 24.5 % (39.0-53.0) Mean Corpuscular Volume 84 fL (79-100) Mean Corpuscular Hemoglobin 28 pg (25-35) Mean Corpuscular Hemoglobin Concent 33 g/dL (31-37) Red Cell Distribution Width 15.3 % (11.5-14.5) Platelet Count 359 x10^3/uL (140-400) Neutrophils (%) (Auto) 71 % (31-73) Lymphocytes (%) (Auto) 17 % (24-48) Monocytes (%) (Auto) 10 % (0-9) Eosinophils (%) (Auto) 3 % (0-3) Basophils (%) (Auto) 1 % (0-3) Neutrophils # (Auto) 9.5 x10^3/uL (1.8-7.7) Lymphocytes # (Auto) 2.2 x10^3/uL (1.0-4.8) Monocytes # (Auto) 1.3 x10^3/uL (0.0-1.1) Eosinophils # (Auto) 0.4 x10^3/uL (0.0-0.7) Basophils # (Auto) 0.1 x10^3/uL (0.0-0.2) Sodium Level 142 mmol/L (136-145) Potassium Level 3.6 mmol/L (3.5-5.1) Chloride Level 106 mmol/L (98-107) Carbon Dioxide Level 28 mmol/L (21-32) Anion Gap 8 (6-14) Blood Urea Nitrogen 18 mg/dL (8-26) Creatinine 1.4 mg/dL (0.7-1.3) Estimated GFR (Cockcroft-Gault) 50.5 Glucose Level 162 mg/dL (70-99) Calcium Level 8.1 mg/dL (8.5-10.1) Glucose (Fingerstick) 171 mg/dL (70-99) Medications Active Scripts Medications Dose Route/Sig Max Daily Dose Days Date Category Atorvastatin Calcium 40 Mg Tablet 80 Mg PO HS 07/05/19 Reported Amlodipine Besylate 10 Mg Tablet 10 Mg PO HS 07/05/19 Reported Flomax (Tamsulosin Hcl) 0.4 Mg Cap.er.24h 0.4 Mg PO DAILY 07/05/19 Reported Lisinopril 40 Mg Tablet 40 Mg PO DAILY 07/05/19 Reported Culturelle (Lactobacillus Rhamnosus Gg) 1 Each Capsule 1 Cap PO DAILY 30 07/05/19 Reported Humalog (Insulin Lispro) 100 Unit/1 Ml Vial 5 Unit SQ TIDAC 07/05/19 Reported Lantus (Insulin Glargine,Hum.rec.anlog) 100 Unit/1 Ml Vial 15 Unit SQ HS 07/05/19 Reported Furosemide 40 Mg Tablet 40 Mg PO DAILY 07/05/19 Reported Carvedilol 25 Mg Tablet 25 Mg PO TID 07/05/19 Reported Impression . IMPRESSION: 1. Acute hypoxemic respiratory failure. 2. Acute blood loss anemia. 3. Epistaxis. 4. Severe protein malnutrition present upon admission. 5. Type 2 diabetes. 6. Coronary artery disease with previous left heart catheterization and PCI in 2009. 7. Hyperlipidemia. 8. Yhlih-nd-nnlduur kidney disease. Plan . DC OK BY ZACKARY MONGE MD Jul 07, 2019 08:26
--- NOTE | 2019-07-07 08:40 | NUR ---
Pt left at approx 0835 for EGD.
[2019-07-07] MEDS ORDERED: PROPOFOL 20 ML IV ONE (08:49)
[2019-07-07] MEDS ORDERED: LIDOCAINE 2% PF 5 ML VIAL. ONE (08:49)
[2019-07-07] MEDS: ENOXAPARIN 40 MG/0.4 ML SYRINGE. SQ SCH (09:00)
--- NOTE | 2019-07-07 09:02 | PDOC4 ---
Operative Note Operative Note EGD Meds propofol 150 mg iv Pre-op dx acute blood loss anemia post-op dx non-erosive gastritis Plan advance diet o/p sb series and capsule endoscopy if unable to maintain Hg LUCY ORTIZ MD Jul 07, 2019 09:02
[2019-07-07 10:11] VITALS: BP 182/84
[2019-07-07] MEDS: LACTOBACILLUS RHAMNOSUS GG 1 CAPSULE. PO SCH (10:19)
[2019-07-07] MEDS: TAMSULOSIN 0.4 MG CAP.ER.24H. PO SCH (10:19)
[2019-07-07 10:20] VITALS: BP 182/84
[2019-07-07] MEDS: FERROUS SULFATE 325 MG TABLET. PO SCH (10:20)
[2019-07-07] MEDS: LISINOPRIL 20 MG TABLET PO SCH (10:20)
[2019-07-07] MEDS: FUROSEMIDE 40 MG TABLET. PO SCH (10:21)
--- NOTE | 2019-07-07 10:27 | SNU/HH DC ---
DISCHARGE WITH HOME HEALTH DISCHARGE INFORMATION: Condition on Discharge: Stable CODE STATUS: Code Status: Full HOME HEALTH: Face to Face: I certify this patient is under my care and that I, or a nurse practitioner or physician's assistant football coach working with me, had a face to face encounter that meets the physician face to face encounter requirements with this patient on []. Medical Complications: CHF Intermediate For: Assess & Educate Safety RN For Eval/Treatment: Yes Physical Therapy For: Evalulation/Treatment Occupational Therapy For: Evaluation/Treatment Home Health Aide For: Self-care LIME SLAKER For: Community Resources Pt Meets Homebound Status: Poor coordination w/ amb. POST DISCHARGE ORDERS: DIET AFTER DISCHARGE: Cardiac CERTIFICATION STATEMENT: Certification Statement: Certification Statement: Based on the above finding, I certify that this patient is confined to the home and needs intermittent long term care, physical therapy and/or speech therapy, or continues to need occupational therapy.~ This patient is under my care, and I have initiated the establishment of the plan of care.~ This patient will be followed by myself or a community physician who will periodically review the plan of care. Home Meds Reported Medications Atorvastatin Calcium (ATORVASTATIN CALCIUM) 40 Mg Tablet, 80 MG PO HS for FOR CHOLESTEROL, #30 TAB 0 Refills 07/05/19 Amlodipine Besylate (AMLODIPINE BESYLATE) 10 Mg Tablet, 10 MG PO HS for HTN, TAB 07/05/19 Tamsulosin Hcl (FLOMAX) 0.4 Mg Cap.er.24h, 0.4 MG PO DAILY for BPH, TAB 07/05/19 Lisinopril (LISINOPRIL) 40 Mg Tablet, 40 MG PO DAILY for FOR HYPERTENSION, #30 TAB 0 Refills 07/05/19 Lactobacillus Rhamnosus Gg (CULTURELLE) 1 Each Capsule, 1 CAP PO DAILY for Infection for 30 Days, #30 CAP 0 Refills 07/05/19 Insulin Lispro (HUMALOG) 100 Unit/1 Ml Vial, 5 UNIT SQ TIDAC for DM, VIAL 07/05/19 Insulin Glargine,Hum.rec.anlog (LANTUS) 100 Unit/1 Ml Vial, 15 UNIT SQ HS for DM, VIAL 07/05/19 Furosemide (FUROSEMIDE) 40 Mg Tablet, 40 MG PO DAILY for CHF, TAB 07/05/19 Carvedilol (CARVEDILOL) 25 Mg Tablet, 25 MG PO TID for CARDIAC, TAB 07/05/19 KEYA BHATT III DO Jul 07, 2019 10:27
[2019-07-07] MEDS: INSULIN LISPRO 300 UNITS/3 ML VIAL. SQ SCH ×4 (10:28→12:00)
--- NOTE | 2019-07-07 12:55 | NUR ---
SS following up with discharge planning. Discharge orders for home healthcare received. SS met with pt to discuss home healthcare and discharge planning. Pt declined home healthcare stating it was not necessary. Pt's RN notified.
--- NOTE | 2019-07-07 13:26 | PDOC ---
PROGRESS NOTES Subjective Subjective HPI - f/u of Normochromic normocytic anemia ROS - no epistaxis Objective Objective Vital Signs Date Time Temp Pulse Resp B/P (MAP) Pulse Ox O2 Delivery O2 Flow Rate FiO2 07/07/19 10:20 60 182/84 07/07/19 10:11 98.0 18 95 Room Air 98.0 07/07/19 09:05 2 Intake and Output 07/07/19 07:00 Intake Total 1640 ml Output Total 651 ml Balance 989 ml Intake Oral 1640 ml Output Urine Total 651 ml # Voids 4 # Bowel Movements 1 Physical Exam Heart: Normal S1, Normal S2 General: Alert, Oriented X3 Lungs: Clear to auscultation Neuro: Normal speech Psych/Mental Status: Mental status NL Assessment Assessment IMPRESSION AND PLAN: 1. Normochromic normocytic anemia. The patient had severe anemia on 07/04/2019 with a hemoglobin of 5.1 [place] [facility] [place] He has received a total of 3 units of PRBC transfusion and the hemoglobin was 8.1 on 07/05/2019. Review of the prior records indicates that his hemoglobin was 8.3 at [facility] on 06/24/2019. The patient reports that his labs are unremarkable in 05/2019. I suspect that this is an acute onset anemia due to severe nose bleeding. He has already received 3 units of PRBC transfusion. I will also obtain iron studies and B12 level. I agree to consult Gastroenterology. s/p EGD 07/07/2019: non-erosive gastritis. f/u with PCP for monitoring Hb. Continue oral iron. 2. Severe epistaxis, right side, status post rhinoscopy at [facility] on 06/24/2019 that revealed bleeding from the right anterior septum. Hemostasis was achieved with NasoPore and FloSeal. If he rebleeds, then ENT recommended to spray Afrin liberally to both nares. He has not had any more episodes of bleeding. 3. Coronary artery disease with history of non-ST segment elevation myocardial infarction in the past. 4. Dyspnea due to anemia, improving. Appreciate pulmonary consultation. I discussed with registered nurse and I discussed with Gastroenterology. Comment Review of Relevant I have reviewed the following items cruz (where applicable) has been applied. Labs Laboratory Tests Test 07/05/19 17:26 07/05/19 20:50 07/05/19 21:03 07/06/19 07:25 Glucose (Fingerstick) 171 mg/dL (70-99) 154 mg/dL (70-99) 161 mg/dL (70-99) Hemoglobin 8.1 g/dL (13.0-17.5) Hematocrit 24.8 % (39.0-53.0) Test 07/06/19 11:27 07/06/19 14:35 07/06/19 17:53 07/06/19 21:04 Glucose (Fingerstick) 165 mg/dL (70-99) 167 mg/dL (70-99) 120 mg/dL (70-99) Red Blood Count 2.87 x10^6/uL (4.30-5.70) Absolute Reticulocyte Count 0.101 x10^6/uL (0.020-0.120) Percent Reticulocyte Count 3.5 % (0.5-2.3) Immature Reticulocyte Fraction 0.53 (0.20-0.60) Iron Level 13 ug/dL (65-175) Total Iron Binding Capacity 258 ug/dL (250-450) Iron Saturation 5 % (15-34) Ferritin 57 ng/mL (26-388) Vitamin B12 Level 558 pg/mL (247-911) Test 07/07/19 03:30 07/07/19 07:04 White Blood Count 13.5 x10^3/uL (4.0-11.0) Red Blood Count 2.90 x10^6/uL (4.30-5.70) Hemoglobin 8.1 g/dL (13.0-17.5) Hematocrit 24.5 % (39.0-53.0) Mean Corpuscular Volume 84 fL (79-100) Mean Corpuscular Hemoglobin 28 pg (25-35) Mean Corpuscular Hemoglobin Concent 33 g/dL (31-37) Red Cell Distribution Width 15.3 % (11.5-14.5) Platelet Count 359 x10^3/uL (140-400) Neutrophils (%) (Auto) 71 % (31-73) Lymphocytes (%) (Auto) 17 % (24-48) Monocytes (%) (Auto) 10 % (0-9) Eosinophils (%) (Auto) 3 % (0-3) Basophils (%) (Auto) 1 % (0-3) Neutrophils # (Auto) 9.5 x10^3/uL (1.8-7.7) Lymphocytes # (Auto) 2.2 x10^3/uL (1.0-4.8) Monocytes # (Auto) 1.3 x10^3/uL (0.0-1.1) Eosinophils # (Auto) 0.4 x10^3/uL (0.0-0.7) Basophils # (Auto) 0.1 x10^3/uL (0.0-0.2) Sodium Level 142 mmol/L (136-145) Potassium Level 3.6 mmol/L (3.5-5.1) Chloride Level 106 mmol/L (98-107) Carbon Dioxide Level 28 mmol/L (21-32) Anion Gap 8 (6-14) Blood Urea Nitrogen 18 mg/dL (8-26) Creatinine 1.4 mg/dL (0.7-1.3) Estimated GFR (Cockcroft-Gault) 50.5 Glucose Level 162 mg/dL (70-99) Calcium Level 8.1 mg/dL (8.5-10.1) Glucose (Fingerstick) 171 mg/dL (70-99) Laboratory Tests Test 07/06/19 14:35 07/06/19 17:53 07/06/19 21:04 07/07/19 03:30 Red Blood Count 2.87 x10^6/uL (4.30-5.70) 2.90 x10^6/uL (4.30-5.70) Absolute Reticulocyte Count 0.101 x10^6/uL (0.020-0.120) Percent Reticulocyte Count 3.5 % (0.5-2.3) Immature Reticulocyte Fraction 0.53 (0.20-0.60) Iron Level 13 ug/dL (65-175) Total Iron Binding Capacity 258 ug/dL (250-450) Iron Saturation 5 % (15-34) Ferritin 57 ng/mL (26-388) Vitamin B12 Level 558 pg/mL (247-911) Glucose (Fingerstick) 167 mg/dL (70-99) 120 mg/dL (70-99) White Blood Count 13.5 x10^3/uL (4.0-11.0) Hemoglobin 8.1 g/dL (13.0-17.5) Hematocrit 24.5 % (39.0-53.0) Mean Corpuscular Volume 84 fL (79-100) Mean Corpuscular Hemoglobin 28 pg (25-35) Mean Corpuscular Hemoglobin Concent 33 g/dL (31-37) Red Cell Distribution Width 15.3 % (11.5-14.5) Platelet Count 359 x10^3/uL (140-400) Neutrophils (%) (Auto) 71 % (31-73) Lymphocytes (%) (Auto) 17 % (24-48) Monocytes (%) (Auto) 10 % (0-9) Eosinophils (%) (Auto) 3 % (0-3) Basophils (%) (Auto) 1 % (0-3) Neutrophils # (Auto) 9.5 x10^3/uL (1.8-7.7) Lymphocytes # (Auto) 2.2 x10^3/uL (1.0-4.8) Monocytes # (Auto) 1.3 x10^3/uL (0.0-1.1) Eosinophils # (Auto) 0.4 x10^3/uL (0.0-0.7) Basophils # (Auto) 0.1 x10^3/uL (0.0-0.2) Sodium Level 142 mmol/L (136-145) Potassium Level 3.6 mmol/L (3.5-5.1) Chloride Level 106 mmol/L (98-107) Carbon Dioxide Level 28 mmol/L (21-32) Anion Gap 8 (6-14) Blood Urea Nitrogen 18 mg/dL (8-26) Creatinine 1.4 mg/dL (0.7-1.3) Estimated GFR (Cockcroft-Gault) 50.5 Glucose Level 162 mg/dL (70-99) Calcium Level 8.1 mg/dL (8.5-10.1) Test 07/07/19 07:04 Glucose (Fingerstick) 171 mg/dL (70-99) Medications Current Medications Ondansetron HCl (Zofran) 4 mg PRN Q4HRS PRN IV NAUSEA/VOMITING; Start 07/04/19 at 20:15 Acetaminophen (Tylenol) 650 mg PRN Q4HRS PRN PO TEMP OVER 100.4F OR MILD PAIN; Start 07/04/19 at 20:15 Acetaminophen (Tylenol Supp) 650 mg PRN Q4HRS PRN [place] TEMP OVER 100.4F OR MILD PAIN; Start 07/04/19 at 20:15 Enoxaparin Sodium (Lovenox 40mg Syringe) 40 mg Q24H SQ Last administered on 07/05/19at 21:20; Start 07/04/19 at 20:15; Stop 07/06/19 at 20:12; Status DC Pantoprazole Sodium (PROTONIX VIAL for IV PUSH) 40 mg DAILYAC IVP Last administered on 07/06/19at 08:01; Start 07/05/19 at 07:30; Stop 07/06/19 at 12:22; Status DC Amino Acids/ Glycerin/ Electrolytes 1,000 ml @ 70 mls/hr [id number] IV Last a dministered on 07/04/19at 20:43; Start 07/04/19 at 20:15; Stop 07/04/19 at 21:05; Status DC Insulin Human Lispro (HumaLOG) 0-9 UNITS TIDWMEALS SQ ; Start 07/05/19 at 08:00; Stop 07/05/19 at 00:16; Status DC Dextrose (Dextrose 50%-Water Syringe) 12.5 gm PRN Q15MIN PRN IV SEE COMMENTS; Start 07/04/19 at 20:15 Dextrose (Iv Dextrose 5%) 250 ml PRN Q15MIN PRN IV SEE COMMENTS; Start 07/04/19 at 20:15 Amino Acids/ Electrolytes/ Dextrose 1,000 ml @ 80 mls/hr [id number] IV Last administered on 07/05/19at 09:09; Start 07/04/19 at 21:15; Stop 07/05/19 at 19:23; Status DC Insulin Human Lispro (HumaLOG) 0-9 UNITS Q6HRS SQ Last administered on 07/06/19at 18:01; Start 07/05/19 at 00:15; Stop 07/06/19 at 20:09; Status DC Furosemide (Lasix) 40 mg 1X ONCE IVP Last administered on 07/05/19at 15:00; Start 07/05/19 at 11:30; Stop 07/05/19 at 11:31; Status DC Amlodipine Besylate (Norvasc) 10 mg HS PO Last administered on 07/06/19at 21:31; Start 07/05/19 at 21:00 Insulin Glargine (Lantus Syringe) 15 unit HS SQ Last administered on 07/05/19at 21:26; Start 07/05/19 at 21:00 Insulin Human Lispro (HumaLOG) 5 units TIDWMEALS SQ Last administered on 07/07/19at 10:29; Start 07/05/19 at 17:00 Lisinopril (Prinivil) 40 mg DAILY PO Last administered on 07/07/19at 10:20; Start 07/05/19 at 14:00 Tamsulosin HCl (Flomax) 0.4 mg DAILY PO Last administered on 07/07/19at 10:19; Start 07/05/19 at 14:00 Carvedilol (Coreg) 25 mg TIDWMEALS PO Last administered on 07/06/19at 08:07; Start 07/05/19 at 17:00; Stop 07/06/19 at 11:54; Status DC Lactobacillus Rhamnosus (Culturelle) 1 cap DAILY PO Last administered on 07/07/19at 10:19; Start 07/05/19 at 14:00 Atorvastatin Calcium (Lipitor) 80 mg HS PO Last administered on 07/06/19at 21:30; Start 07/05/19 at 21:00 Perflutren Protein Type A Microsphe (Optison) 0.66 mg STK-MED ONCE IV ; Start 07/05/19 at 15:35; Stop 07/05/19 at 15:35; Status DC Furosemide (Lasix) 40 mg DAILY PO Last administered on 07/07/19at 10:21; Start 07/06/19 at 12:15 Pantoprazole Sodium (Protonix) 40 mg DAILYAC PO Last administered on 07/07/19at 10:20; Start 07/07/19 at 07:30 Ferrous Sulfate (Feosol) 325 mg BIDWMEALS PO Last administered on 07/07/19at 10:20; Start 07/06/19 at 17:00 Insulin Human Lispro (HumaLOG) 0-9 UNITS QIDACHS SQ Last administered on 07/07/19at 10:28; Start 07/06/19 at 21:00 Enoxaparin Sodium (Lovenox 40mg Syringe) 40 mg Q12H SQ Last administered on 07/06/19at 21:30; Start 07/06/19 at 21:00 Ringer's Solution 1,000 ml @ 75 mls/hr 1X ONCE IV Last administered on 07/07/19at 08:00; Start 07/07/19 at 06:45; Stop 07/07/19 at 20:04 Propofol 20 ml @ As Directed STK-MED ONCE IV ; Start 07/07/19 at 08:49; Stop 07/07/19 at 08:50; Status DC Lidocaine HCl (Lidocaine Pf 2% Vial) 5 ml STK-MED ONCE .ROUTE ; Start 07/07/19 at 08:49; Stop 07/07/19 at 08:50; Status DC Active Scripts Active Reported Atorvastatin Calcium 40 Mg Tablet 80 Mg PO HS Amlodipine Besylate 10 Mg Tablet 10 Mg PO HS Flomax (Tamsulosin Hcl) 0.4 Mg Cap.er.24h 0.4 Mg PO DAILY Lisinopril 40 Mg Tablet 40 Mg PO DAILY Culturelle (Lactobacillus Rhamnosus Gg) 1 Each Capsule 1 Cap PO DAILY 30 Days Humalog (Insulin Lispro) 100 Unit/1 Ml Vial 5 Unit SQ TIDAC Lantus (Insulin Glargine,Hum.rec.anlog) 100 Unit/1 Ml Vial 15 Unit SQ HS Furosemide 40 Mg Tablet 40 Mg PO DAILY Carvedilol 25 Mg Tablet 25 Mg PO TID Vitals/I & O Vital Sign - Last 24 Hours 07/06/19 07/06/19 07/06/19 07/06/19 15:00 19:12 20:00 21:31 Temp 97.9 97.6 97.9 97.6 Pulse 63 50 50 Resp 18 B/P (MAP) 167/71 (103) 145/64 (91) 145/64 Pulse Ox 97 97 O2 Delivery Nasal Cannula Room Air Nasal Cannula O2 Flow Rate 2.0 2.0 07/06/19 07/07/19 07/07/19 07/07/19 23:41 02:55 07:01 09:05 Temp 98.0 98.3 97.8 97.8 98.0 98.3 97.8 97.8 Pulse 70 55 64 65 Resp 18 18 18 20 B/P (MAP) 170/77 (108) 153/70 (97) 147/65 (92) 124/60 Pulse Ox 91 96 90 95 O2 Delivery Room Air Nasal Cannula Nasal Cannula Nasal Cannula O2 Flow Rate 2.0 2 07/07/19 07/07/19 07/07/19 07/07/19 09:20 09:35 10:11 10:20 Temp 97.8 97.8 98.0 97.8 97.8 98.0 Pulse 62 69 60 60 Resp 20 20 18 B/P (MAP) 140/58 142/63 182/84 (116) 182/84 Pulse Ox 95 93 95 O2 Delivery Room Air Room Air Room Air Intake and Output 07/06/19 07/06/19 07/07/19 15:00 23:00 07:00 Intake Total 240 ml 1100 ml 300 ml Output Total 651 ml Balance 240 ml 449 ml 300 ml DOTTIE REA MD Jul 07, 2019 13:26
--- NOTE | 2019-07-07 14:46 | NUR ---
did not give 1130 or 1200 insulin due to late breakfast after being npo and giving insulin at 1030.
== END 2019-07-07 14:00 | disposition home or self-care (01) | DRG 189 ==
LOC: 1 WEST ICU 19:35 → 2 NORTH 07-05 15:45
PROVIDERS: ADMIT Internal Medicine; ATTEND Internal Medicine
PROC: 30233N1 Transfusion of Nonautologous Red Blood Cells into Peripheral Vein, Percutaneous Approach (ICD-10-PCS; principal; 2019-07-04)
PROC: 5A09357 Assistance with Respiratory Ventilation, Less than 24 Consecutive Hours, Continuous Positive Airway Pressure (ICD-10-PCS; 2019-07-04)
PROC: 0DJ08ZZ Inspection of Upper Intestinal Tract, Via Natural or Artificial Opening Endoscopic (ICD-10-PCS; 2019-07-07)
DX: J96.01 Acute respiratory failure with hypoxia (principal); N17.0 Acute kidney failure with tubular necrosis; E43 Unspecified severe protein-calorie malnutrition; I50.43 Acute on chronic combined systolic (congestive) and diastolic (congestive) heart failure; D62 Acute posthemorrhagic anemia; I13.0 Hypertensive heart and chronic kidney disease with heart failure and stage 1 through stage 4 chronic kidney disease, or unspecified chronic kidney disease; R04.0 Epistaxis; K29.70 Gastritis, unspecified, without bleeding; N18.9 Chronic kidney disease, unspecified; D50.9 Iron deficiency anemia, unspecified; E11.22 Type 2 diabetes mellitus with diabetic chronic kidney disease; E78.5 Hyperlipidemia, unspecified; G47.33 Obstructive sleep apnea (adult) (pediatric); I25.10 Atherosclerotic heart disease of native coronary artery without angina pectoris; I25.2 Old myocardial infarction; Z79.82 Long term (current) use of aspirin; Z82.49 Family history of ischemic heart disease and other diseases of the circulatory system; Z95.5 Presence of coronary angioplasty implant and graft
CPT/HCPCS: 36415; 36600; 43235; 71045; 80048; 80053; 80061; 82140; 82607; 82728; 82805; 82962; 83540; 83550; 84443; 85014; 85018; 85025; 85045; 86850; 86900; 86901; 86920; 93306; 94660; C9113; J1650; J1815; J1940; J2001; J2704; J3490; J7120; P9016; G0378

== ENCOUNTER 2019-07-19 13:55 | Observation (INO) | payer MEDICARE, OTHER ==
[~2019-07-19] VITALS: Ht 182.9 cm; Wt 135.0 kg
[~2019-07-19 13:55] MED LIST: AMLO10TA8 PO; ATOR40TA59 PO; ATOR80TA72 PO; CARV25TA2 PO; FURO40TA4 PO; INSU100V6 SQ; INSU100V8 SQ; LACT1CAP21 PO; LISI-130 PO; TAMS0.4C97 PO
--- NOTE | 2019-07-19 14:31 | PHYS DOC ---
Past Medical History Past Medical History: CAD, Diabetes-Type II, High Cholesterol, Hypertension Smoking Status: Former Smoker Adult General Chief Complaint Chief Complaint: chest pain HPI HPI Patient is a 68 year old male with history of hypertension, dyslipidemia, diabetes mellitus, coronary artery disease and status post stent placement who presents via EMS with complaints of right-sided chest pain. Patient had recent hospitalization on July 04 to because of epistaxis and anemia with hemoglobin of 5.1 that improved with blood transfusion. Patient states he had right-sided chest pain today as a constant aching pain with radiation to his back associated with shortness of breath and palpitations without dizziness and nausea and vomiting and seen by his primary care and treated with nitroglycerin 2 with resulting pain. Review of Systems Review of Systems Constitutional: Denies fever or chills [] Eyes: Denies change in visual acuity, redness, or eye pain [] HENT: Denies nasal congestion or sore throat [] Respiratory: Denies cough, reports shortness of breath [] Cardiovascular: No additional information not addressed in HPI [] GI: Denies abdominal pain, nausea, vomiting, bloody stools or diarrhea [] : Denies dysuria or hematuria [] Musculoskeletal: Denies back pain or joint pain [] Integument: Denies rash or skin lesions [] Neurologic: Denies headache, focal weakness or sensory changes [] Endocrine: Denies polyuria or polydipsia [] All other systems were reviewed and found to be within normal limits, except as documented in this note. Allergies Allergies Allergies Coded Allergies Type Severity Reaction Last Updated Verified No Known Drug Allergies 07/07/19 No Physical Exam Physical Exam Constitutional: Well developed, well nourished, no distress, non-toxic appearance, morbidly obese. [] HENT: Normocephalic, atraumatic. Eyes: PERRLA, EOMI, conjunctiva normal, no discharge. [] Neck: Normal range of motion, no tenderness, supple, no stridor. [] Cardiovascular:Heart rate regular rhythm, no murmur [] Lungs & Thorax: Bilateral breath sounds clear to auscultation [] Abdomen: Bowel sounds normal, soft, no tenderness, no masses, no pulsatile masses. [] Skin: Warm, dry, no erythema, no rash. [] Back: No tenderness, no CVA tenderness. [] Extremities: No tenderness, no cyanosis, no clubbing, ROM intact, no edema. [] Neurologic: Alert and oriented X 3, no focal deficits noted. [] Psychologic: Affect normal, judgement normal, mood normal. [] Current Patient Data Vital Signs Vital Signs Date Time Temp Pulse Resp B/P (MAP) Pulse Ox O2 Delivery O2 Flow Rate FiO2 07/19/19 14:21 98.6 65 17 168/77 (107) 94 Room Air 98.6 Lab Values Laboratory Tests Test 07/19/19 15:16 White Blood Count 12.3 x10^3/uL (4.0-11.0) H Red Blood Count 3.11 x10^6/uL (4.30-5.70) L Hemoglobin 8.1 g/dL (13.0-17.5) L Hematocrit 25.3 % (39.0-53.0) L Mean Corpuscular Volume 81 fL (79-100) Mean Corpuscular Hemoglobin 26 pg (25-35) Mean Corpuscular Hemoglobin Concent 32 g/dL (31-37) Red Cell Distribution Width 16.0 % (11.5-14.5) H Platelet Count 293 x10^3/uL (140-400) Neutrophils (%) (Auto) 73 % (31-73) Lymphocytes (%) (Auto) 15 % (24-48) L Monocytes (%) (Auto) 7 % (0-9) Eosinophils (%) (Auto) 3 % (0-3) Basophils (%) (Auto) 1 % (0-3) Neutrophils # (Auto) 9.0 x10^3/uL (1.8-7.7) H Lymphocytes # (Auto) 1.9 x10^3/uL (1.0-4.8) Monocytes # (Auto) 0.9 x10^3/uL (0.0-1.1) Eosinophils # (Auto) 0.4 x10^3/uL (0.0-0.7) Basophils # (Auto) 0.1 x10^3/uL (0.0-0.2) Prothrombin Time 14.3 SEC (11.7-14.0) H Prothrombin Time INR 1.1 (0.8-1.1) D-Dimer (Erica) 0.58 ug/mlFEU (0.00-0.50) H Sodium Level 139 mmol/L (136-145) Potassium Level 3.9 mmol/L (3.5-5.1) Chloride Level 103 mmol/L (98-107) Carbon Dioxide Level 28 mmol/L (21-32) Anion Gap 8 (6-14) Blood Urea Nitrogen 29 mg/dL (8-26) H Creatinine 1.3 mg/dL (0.7-1.3) Estimated GFR (Cockcroft-Gault) 55.1 BUN/Creatinine Ratio 22 (6-20) H Glucose Level 200 mg/dL (70-99) H Calcium Level 8.3 mg/dL (8.5-10.1) L Magnesium Level 1.7 mg/dL (1.8-2.4) L Total Bilirubin 0.4 mg/dL (0.2-1.0) Aspartate Amino Transferase (AST) 18 U/L (15-37) Alanine Aminotransferase (ALT) 24 U/L (16-63) Alkaline Phosphatase 89 U/L (46-116) Creatine Kinase 126 U/L (39-308) Troponin I Quantitative < 0.017 ng/mL (0.000-0.055) EP-Asw-P-Type Natriuretic Peptide 514 pg/mL (0-124) H Total Protein 6.2 g/dL (6.4-8.2) L Albumin 2.8 g/dL (3.4-5.0) L Albumin/Globulin Ratio 0.8 (1.0-1.7) L Lipase 214 U/L (73-393) Laboratory Tests 07/19/19 15:16 Laboratory Tests 07/19/19 15:16 EKG EKG EKG interpreted by me. EKG at 1404 showed normal sinus rhythm at rate of 63, left fourth axis, Q waves inferior leads, no acute ST and T-wave elevation. Radiology/Procedures Radiology/Procedures [facility] [address] [place], [place] [id number] IMAGING REPORT Signed PATIENT: ANTONIO FIGUEROA ACCOUNT: [id number] : 1950 LOCATION: ER AGE: 68 SEX: M EXAM STATUS: PRE ER ORD. PHYSICIAN: BESS BROWN MD REASON: right-sided chest pain PROCEDURE: PORTABLE CHEST 1V Examination: PORTABLE CHEST 1V History: Right-sided chest pain Comparison/Correlation: 07/05/2019 AP view of the chest Findings: Portable upright frontal view chest was obtained. Heart size is enlarged in appearance although this may be in part technique related. Pulmonary vasculature is mildly congested. No pneumothorax. No focal infiltrate. No pleural effusion. Bony structures are grossly unremarkable. Impression: No suspicious process. Slight congestive heart failure. Electronically signed by: Cain Perez MD (07/19/2019 2:29 PM) [id number] DICTATED and SIGNED BY: CAIN PEREZ MD DATE: 07/19/19 1429 Course & Med Decision Making Course & Med Decision Making Pertinent Labs and Imaging studies reviewed. (See chart for details) Patient requiring admission for further evaluation and treatment. Discussed with Dr. Guallpa who is in agreement with admission. Discussed findings and plan with patient and family, who acknowledge understanding and agreement. Dragon Disclaimer Dragon Disclaimer This electronic medical record was generated, in whole or in part, using a voice recognition dictation system. Departure Departure Impression: Primary Impression: Right-sided chest pain Additional Impressions: Anemia Hypomagnesemia Hypoalbuminemia Elevated liver function tests Uncontrolled diabetes mellitus Disposition: ADMITTED INPATIENT Admitting Physician: HIM[facility] (Dr. Guallpa accepted admission at 1717) Condition: IMPROVED Referrals: KAELA HERNANDEZ MD (PCP) The HEART Score for CP Pts HEART Score for Chest Pain: HEART Score for Chest Pain Response (Comments) Value History Slighlty/Non-Suspicious 0 ECG Nonspecific Repolarizatio 1 Age > 65 2 Risk Factors >3 Risk Factors or Hx CAD 2 Troponin < Normal Limit 0 Total 5 Risk Factors: Risk Factors: DM, Current or recent (<one month) smoker, HTN, HLP, family history of CAD, obesity. Risk Scores: Score 0 - 3: 2.5% MACE over next 6 weeks - Discharge Home Score 4 - 6: 20.3% MACE over next 6 weeks - Admit for Clinical Observation Score 7 - 10: 72.7% MACE over next 6 weeks - Early Invasive Strategies Problem Qualifiers Additional Impressions: Anemia Anemia type: unspecified type Qualified Codes: D64.9 - Anemia, unspecified Uncontrolled diabetes mellitus Diabetes mellitus type: other specified (including HARSH) Glycemic state: with hyperglycemia Qualified Codes: E13.65 - Other specified diabetes me llitus with hyperglycemia BESS BROWN MD Jul 19, 2019 14:31
[2019-07-19 15:25] LABS: BASO # 0.1 x10^3/uL (0.0-0.2); BASO % 1 % (0-3); EOS # 0.4 x10^3/uL (0.0-0.7); EOS % 3 % (0-3); HEMATOCRIT 25.3 % (39.0-53.0); HEMOGLOBIN 8.1 g/dL (13.0-17.5); LYMPH # 1.9 x10^3/uL (1.0-4.8); LYMPH % 15 % (24-48); MEAN CORPUSCULAR HEMOGLOBIN 26 pg (25-35); MEAN CORPUSCULAR HGB CONC 32 g/dL (31-37); MEAN CORPUSCULAR VOLUME 81 fL (79-100); MONO # 0.9 x10^3/uL (0.0-1.1); MONO % 7 % (0-9); NEUT % 73 % (31-73); PLATELET COUNT 293 x10^3/uL (140-400); RED BLOOD COUNT 3.11 x10^6/uL (4.30-5.70); WHITE BLOOD COUNT 12.3 x10^3/uL (4.0-11.0)
[2019-07-19 15:35] LABS: PROTHROMBIN TIME PATIENT 14.3 SEC (11.7-14.0)
[2019-07-19 15:38] LABS: D-DIMER 0.58 ug/mlFEU (0.00-0.50)
[2019-07-19 15:41] LABS: CALCIUM 8.3 mg/dL (8.5-10.1); CREATININE 1.3 mg/dL (0.7-1.3); GFR 55.1; POTASSIUM 3.9 mmol/L (3.5-5.1)
[2019-07-19 15:46] LABS: ALBUMIN 2.8 g/dL (3.4-5.0); ALBUMIN/GLOBULIN RATIO 0.8 (1.0-1.7); MAGNESIUM 1.7 mg/dL (1.8-2.4); TOTAL BILIRUBIN 0.4 mg/dL (0.2-1.0); TOTAL PROTEIN 6.2 g/dL (6.4-8.2)
--- NOTE | 2019-07-19 19:17 | PDOC1 ---
History and Physical Date of Admission: Date of Admission DATE: 07/19/19 TIME: 19:14 Chief Complaint: Problems: (1) CHF (congestive heart failure) (2) Hypomagnesemia (3) Anemia (4) Hypoalbuminemia (5) Elevated liver function tests (6) Uncontrolled diabetes mellitus (7) Right-sided chest pain Chief Complain: Chest pain History of Present Illness: HPI: This is a pleasant 68 year male with known coronary disease and prior stents He presented with chest pain He came in by ambulance It's right-sided pain with associated back pain and shortness of breath Moving makes it worse sitting still makes it better He was given some nitroglycerin earlier in the day apparently is primary care doctor's office he thinks that helped the pain Describes the pain as pressure-like in sensation States the pain is waxing and waning His x-ray had intermittent chest pain for several weeks but got worse today I discussed case with ER physician we are going to with the patient and consult cardiology Past Medical/Surgical History: PMH/PSH: Past Medical History: CAD, Diabetes-Type II, High Cholesterol, Hypertension Smoking Status: Former Smoker Allergies: Allergies: Coded Allergies: No Known Drug Allergies (Unverified , 07/07/19) Family History: Family History: Coronary disease Social History: Social Hisoty: He doesn't drink smoke or take drugs Current Medications: Current Medications Active Scripts Active Reported Atorvastatin Calcium 40 Mg Tablet 80 Mg PO HS Amlodipine Besylate 10 Mg Tablet 10 Mg PO HS Flomax (Tamsulosin Hcl) 0.4 Mg Cap.er.24h 0.4 Mg PO DAILY Lisinopril 40 Mg Tablet 40 Mg PO DAILY Culturelle (Lactobacillus Rhamnosus Gg) 1 Each Capsule 1 Cap PO DAILY 30 Days Humalog (Insulin Lispro) 100 Unit/1 Ml Vial 5 Unit SQ TIDAC Lantus (Insulin Glargine,Hum.rec.anlog) 100 Unit/1 Ml Vial 15 Unit SQ HS Furosemide 40 Mg Tablet 40 Mg PO DAILY Carvedilol 25 Mg Tablet 25 Mg PO TID ROS: Review of Systems Review of System REVIEW OF SYSTEMS: GENERAL: Denies weakness SKIN: No bruising, hair changes or rashes. EYES: No blurred, double or loss of vision. NOSE AND THROAT: No history of nosebleeds, hoarseness or sore throat. HEART: Complains of chest pain LUNGS: Complains of intermittent shortness of breath GASTROINTESTINAL: Denies changes in appetite, nausea, vomiting, diarrhea or constipation. GENITOURINARY: No history of frequency, urgency, hesitancy or nocturia. NEUROLOGIC: Denies history of numbness, tingling, or tremor. PSYCHIATRIC: No history of panic, anxiety or depression. ENDOCRINE: No history of heat or cold intolerance, polyuria or polydipsia. EXTREMITIES: Denies joint pain, pain on walking or stiffness. Physical Exam: Vital Signs: Vital Signs Date Time Temp Pulse Resp B/P (MAP) Pulse Ox O2 Delivery O2 Flow Rate FiO2 07/19/19 14:21 98.6 65 17 168/77 (107) 94 Room Air 98.6 Physcial Exam: GEN: No apparent distress. Alert and oriented HEENT: Normal cephalic, atraumatic, external auditory canals are patent EYES: Extraocular muscles are intact, pupil are equally round and reactive to light and accommodation MUSCULOSKELETAL: Well developed , well nourished, good range of motion ENDOCRINE: No thyromegaly was palpated LYMPHATICS: No cervical chain or axillary nodes were noted HEMATOPOIETIC: No bruising NECK: Supple, no JVD, no thyromegaly was noted LUNGS: Clear to auscultation in all lung quinn without rhonchi or wheezing HEART: RRR, S!, S2 present. Peripheral pulses intact, no obvious murmurs noted ABDOMEN: Soft, nontender. Positive bowel sounds, no organomegaly, normal bowel sounds EXTREMITIES: Without clubbing, cyanosis, or edema. Pedal pulses intact. Negative Homans sign NEUROLOGIC: Normal speech and tone. A&O x 3, moves all extremities, no obvious focal deficits PSYCHIATRIC: Normal affect, normal mood. Stable SKIN: No ulcerations or rashes, good skin turgor, no jaundice VASCULAR: Good capillary refill, neurovascular bundle appears to be intact Labs: Labs: Laboratory Tests Test 07/19/19 15:16 White Blood Count 12.3 x10^3/uL (4.0-11.0) Red Blood Count 3.11 x10^6/uL (4.30-5.70) Hemoglobin 8.1 g/dL (13.0-17.5) Hematocrit 25.3 % (39.0-53.0) Mean Corpuscular Volume 81 fL (79-100) Mean Corpuscular Hemoglobin 26 pg (25-35) Mean Corpuscular Hemoglobin Concent 32 g/dL (31-37) Red Cell Distribution Width 16.0 % (11.5-14.5) Platelet Count 293 x10^3/uL (140-400) Neutrophils (%) (Auto) 73 % (31-73) Lymphocytes (%) (Auto) 15 % (24-48) Monocytes (%) (Auto) 7 % (0-9) Eosinophils (%) (Auto) 3 % (0-3) Basophils (%) (Auto) 1 % (0-3) Neutrophils # (Auto) 9.0 x10^3/uL (1.8-7.7) Lymphocytes # (Auto) 1.9 x10^3/uL (1.0-4.8) Monocytes # (Auto) 0.9 x10^3/uL (0.0-1.1) Eosinophils # (Auto) 0.4 x10^3/uL (0.0-0.7) Basophils # (Auto) 0.1 x10^3/uL (0.0-0.2) Prothrombin Time 14.3 SEC (11.7-14.0) Prothromb Time International Ratio 1.1 (0.8-1.1) D-Dimer (Erica) 0.58 ug/mlFEU (0.00-0.50) Sodium Level 139 mmol/L (136-145) Potassium Level 3.9 mmol/L (3.5-5.1) Chloride Level 103 mmol/L (98-107) Carbon Dioxide Level 28 mmol/L (21-32) Anion Gap 8 (6-14) Blood Urea Nitrogen 29 mg/dL (8-26) Creatinine 1.3 mg/dL (0.7-1.3) Estimated GFR (Cockcroft-Gault) 55.1 BUN/Creatinine Ratio 22 (6-20) Glucose Level 200 mg/dL (70-99) Calcium Level 8.3 mg/dL (8.5-10.1) Magnesium Level 1.7 mg/dL (1.8-2.4) Total Bilirubin 0.4 mg/dL (0.2-1.0) Aspartate Amino Transf (AST/SGOT) 18 U/L (15-37) Alanine Aminotransferase (ALT/SGPT) 24 U/L (16-63) Alkaline Phosphatase 89 U/L (46-116) Creatine Kinase 126 U/L (39-308) Troponin I Quantitative < 0.017 ng/mL (0.000-0.055) HQ-Rmo-O-Type Natriuretic Peptide 514 pg/mL (0-124) Total Protein 6.2 g/dL (6.4-8.2) Albumin 2.8 g/dL (3.4-5.0) Albumin/Globulin Ratio 0.8 (1.0-1.7) Lipase 214 U/L (73-393) Laboratory Tests Test 07/19/19 15:16 White Blood Count 12.3 x10^3/uL (4.0-11.0) Red Blood Count 3.11 x10^6/uL (4.30-5.70) Hemoglobin 8.1 g/dL (13.0-17.5) Hematocrit 25.3 % (39.0-53.0) Mean Corpuscular Volume 81 fL (79-100) Mean Corpuscular Hemoglobin 26 pg (25-35) Mean Corpuscular Hemoglobin Concent 32 g/dL (31-37) Red Cell Distribution Width 16.0 % (11.5-14.5) Platelet Count 293 x10^3/uL (140-400) Neutrophils (%) (Auto) 73 % (31-73) Lymphocytes (%) (Auto) 15 % (24-48) Monocytes (%) (Auto) 7 % (0-9) Eosinophils (%) (Auto) 3 % (0-3) Basophils (%) (Auto) 1 % (0-3) Neutrophils # (Auto) 9.0 x10^3/uL (1.8-7.7) Lymphocytes # (Auto) 1.9 x10^3/uL (1.0-4.8) Monocytes # (Auto) 0.9 x10^3/uL (0.0-1.1) Eosinophils # (Auto) 0.4 x10^3/uL (0.0-0.7) Basophils # (Auto) 0.1 x10^3/uL (0.0-0.2) Prothrombin Time 14.3 SEC (11.7-14.0) Prothromb Time International Ratio 1.1 (0.8-1.1) D-Dimer (Erica) 0.58 ug/mlFEU (0.00-0.50) Sodium Level 139 mmol/L (136-145) Potassium Level 3.9 mmol/L (3.5-5.1) Chloride Level 103 mmol/L (98-107) Carbon Dioxide Level 28 mmol/L (21-32) Anion Gap 8 (6-14) Blood Urea Nitrogen 29 mg/dL (8-26) Creatinine 1.3 mg/dL (0.7-1.3) Estimated GFR (Cockcroft-Gault) 55.1 BUN/Creatinine Ratio 22 (6-20) Glucose Level 200 mg/dL (70-99) Calcium Level 8.3 mg/dL (8.5-10.1) Magnesium Level 1.7 mg/dL (1.8-2.4) Total Bilirubin 0.4 mg/dL (0.2-1.0) Aspartate Amino Transf (AST/SGOT) 18 U/L (15-37) Alanine Aminotransferase (ALT/SGPT) 24 U/L (16-63) Alkaline Phosphatase 89 U/L (46-116) Creatine Kinase 126 U/L (39-308) Troponin I Quantitative < 0.017 ng/mL (0.000-0.055) DI-Ogt-I-Type Natriuretic Peptide 514 pg/mL (0-124) Total Protein 6.2 g/dL (6.4-8.2) Albumin 2.8 g/dL (3.4-5.0) Albumin/Globulin Ratio 0.8 (1.0-1.7) Lipase 214 U/L (73-393) Images: Images Examination: PORTABLE CHEST 1V History: Right-sided chest pain Comparison/Correlation: 07/05/2019 AP view of the chest Findings: Portable upright frontal view chest was obtained. Heart size is enlarged in appearance although this may be in part technique related. Pulmonary vasculature is mildly congested. No pneumothorax. No focal infiltrate. No pleural effusion. Bony structures are grossly unremarkable. Impression: No suspicious process. Assessment/Plan Assessment/Plan Chest pain with known coronary artery disease and previous stents Plan Cardiac monitoring Serial enzymes Serial EKGs Consult cardiology When necessary nitroglycerin and/or morphine DVT prophylaxis Home meds Trend labs Prognosis guarded KEYA BHATT III DO Jul 19, 2019 19:17
[2019-07-19 19:19] VITALS: BP 180/84
[2019-07-19] MEDS ORDERED: C.DIFF MED SCREEN BY RX. MC ONE (20:45)
[2019-07-19] MEDS ORDERED: amLODIPine BESYLATE 10 MG TABLET PO SCH (21:00)
[2019-07-19] MEDS ORDERED: ATORVASTATIN CALCIUM 40 MG TABLET. PO SCH (21:00)
[2019-07-19] MEDS ORDERED: INSULIN GLARGINE SYRINGE. SQ SCH (21:00)
[2019-07-19 22:34] VITALS: BP 169/74
[2019-07-20] MEDS ORDERED: IV DEXTROSE 5% 250 ML BAG. IV PRN (01:15)
[2019-07-20] MEDS ORDERED: DEXTROSE 50% 25 GM / 50ML DISP.SYRIN. IV PRN (01:15)
--- NOTE | 2019-07-20 02:29 | NUR ---
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 VS stable, Assessment complete. Patient reports no pain at this time. Resting comfortably on RA. Reminded patient to call for assistance when needed. Call light in reach, bed in low locked position, will continue to monitor.
[2019-07-20 02:51] VITALS: BP 160/71
--- NOTE | 2019-07-20 06:22 | EKG ---
[facility] [address] [place] [address] Test Date: 2019-07-19 Test Time: 14:04:02 Pat Name: ANTONIO FIGUEROA Department: Room: Gender: M Mail Order Sorter: : 1950 Requested By: BESS BROWN Order Number: [id number] Reading MD: Measurements Intervals [place] Rate: 63 P: -88 TN: 174 QRS: 0 QRSD: 106 T: 0 QT: 436 QTc: 449 Interpretive Statements SINUS RHYTHM LEFTWARD AXIS QRS(T) CONTOUR ABNORMALITY CONSISTENT WITH INFERIOR INFARCT AGE UNDETERMINED ABNORMAL ECG No previous ECG available for comparison
[2019-07-20 07:00] VITALS: BP 156/70
--- NOTE | 2019-07-20 07:09 | NUR ---
Pharmacy Medication Review S: Consulted for medication review re: C.diff Risk Assessment score of 4 O: ANTONIO FIGUEROA is a 68 year old with: Previous C.diff infection: No Previous hospitalization: Within 30 days Recent antibiotics: No Use of gastric acid suppressor: Yes [facility]: No Current antibiotic regimen: NONE Current acid suppression regimen: NONE A: Patient has been identified as having risk factors for C.diff infection as noted above. P: Antibiotic Regimen recommendation made: N/A - Not on antibiotics Probiotic ordered: yes PPI changed to [id number]: N/A - not on PPI Milagros Coon RPH, 07/20/19 0710
[2019-07-20] MEDS ORDERED: CARVEDILOL 12.5 MG TABLET. PO SCH (08:00)
[2019-07-20] MEDS: INSULIN LISPRO 300 UNITS/3 ML VIAL. SQ SCH ×2 (08:00→12:57)
[2019-07-20] MEDS ORDERED: FUROSEMIDE 40 MG TABLET. PO SCH (09:00)
[2019-07-20] MEDS ORDERED: LACTOBACILLUS RHAMNOSUS GG 1 CAPSULE. PO SCH (09:00)
[2019-07-20] MEDS ORDERED: TAMSULOSIN 0.4 MG CAP.ER.24H. PO SCH (09:00)
[2019-07-20] MEDS ORDERED: LISINOPRIL 20 MG TABLET PO SCH (09:00)
[2019-07-20 11:00] VITALS: BP 96/74
--- NOTE | 2019-07-20 12:33 | PDOC ---
[employer] PROGRESS NOTE Chief Complaint Chief Complaint Chest pain Coronary artery disease and previous stents Chest pain CHF (congestive heart failure) Hypomagnesemia Anemia Hypoalbuminemia Elevated liver function tests Uncontrolled diabetes mellitus Right-sided chest pain History of Present Illness History of Present Illness Pt seen and examined. Chart reviewed and care discussed with nursing staff. Patient in no acute distress. He is resting comfortably. Pt has no new complaints at this time. Vitals/I&O Vitals/I&O: Vital Signs Date Time Temp Pulse Resp B/P (MAP) Pulse Ox O2 Delivery O2 Flow Rate FiO2 07/20/19 11:00 98.1 74 20 96/74 (81) 96 Room Air 98.1 I & O 07/19/19 07/19/19 07/20/19 15:00 23:00 07:00 Intake Total 500 ml Balance 500 ml Physical Exam General: Alert, Oriented X3, Cooperative, No acute distress Heart: Regular rate, No murmurs Lungs: Clear Abdomen: Normal bowel sounds, No tenderness Extremities: No clubbing, No cyanosis Labs Labs: Laboratory Tests Test 07/19/19 15:16 07/19/19 20:20 07/19/19 20:57 07/19/19 23:05 White Blood Count 12.3 x10^3/uL (4.0-11.0) Red Blood Count 3.11 x10^6/uL (4.30-5.70) Hemoglobin 8.1 g/dL (13.0-17.5) Hematocrit 25.3 % (39.0-53.0) Mean Corpuscular Volume 81 fL (79-100) Mean Corpuscular Hemoglobin 26 pg (25-35) Mean Corpuscular Hemoglobin Concent 32 g/dL (31-37) Red Cell Distribution Width 16.0 % (11.5-14.5) Platelet Count 293 x10^3/uL (140-400) Neutrophils (%) (Auto) 73 % (31-73) Lymphocytes (%) (Auto) 15 % (24-48) Monocytes (%) (Auto) 7 % (0-9) Eosinophils (%) (Auto) 3 % (0-3) Basophils (%) (Auto) 1 % (0-3) Neutrophils # (Auto) 9.0 x10^3/uL (1.8-7.7) Lymphocytes # (Auto) 1.9 x10^3/uL (1.0-4.8) Monocytes # (Auto) 0.9 x10^3/uL (0.0-1.1) Eosinophils # (Auto) 0.4 x10^3/uL (0.0-0.7) Basophils # (Auto) 0.1 x10^3/uL (0.0-0.2) Prothrombin Time 14.3 SEC (11.7-14.0) Prothromb Time International Ratio 1.1 (0.8-1.1) D-Dimer (Erica) 0.58 ug/mlFEU (0.00-0.50) Sodium Level 139 mmol/L (136-145) Potassium Level 3.9 mmol/L (3.5-5.1) Chloride Level 103 mmol/L (98-107) Carbon Dioxide Level 28 mmol/L (21-32) Anion Gap 8 (6-14) Blood Urea Nitrogen 29 mg/dL (8-26) Creatinine 1.3 mg/dL (0.7-1.3) Estimated GFR (Cockcroft-Gault) 55.1 BUN/Creatinine Ratio 22 (6-20) Glucose Level 200 mg/dL (70-99) Calcium Level 8.3 mg/dL (8.5-10.1) Magnesium Level 1.7 mg/dL (1.8-2.4) Total Bilirubin 0.4 mg/dL (0.2-1.0) Aspartate Amino Transf (AST/SGOT) 18 U/L (15-37) Alanine Aminotransferase (ALT/SGPT) 24 U/L (16-63) Alkaline Phosphatase 89 U/L (46-116) Creatine Kinase 126 U/L (39-308) Troponin I Quantitative < 0.017 ng/mL (0.000-0.055) < 0.017 ng/mL (0.000-0.055) < 0.017 ng/mL (0.000-0.055) AZ-Trr-R-Type Natriuretic Peptide 514 pg/mL (0-124) Total Protein 6.2 g/dL (6.4-8.2) Albumin 2.8 g/dL (3.4-5.0) Albumin/Globulin Ratio 0.8 (1.0-1.7) Lipase 214 U/L (73-393) Glucose (Fingerstick) 215 mg/dL (70-99) Review of Systems Review of Systems: reports chest pain denies SOA Assessment and Plan Assessmemt and Plan Problems Medical Problems: (1) Anemia Status: Acute (2) Elevated liver function tests Status: Acute (3) Hypoalbuminemia Status: Acute (4) Hypomagnesemia Status: Acute (5) Right-sided chest pain Status: Acute (6) Uncontrolled diabetes mellitus Status: Acute Chest pain Coronary artery disease and previous stents Chest pain CHF (congestive heart failure) Hypomagnesemia Anemia Hypoalbuminemia Elevated liver function tests Uncontrolled diabetes mellitus Right-sided chest pain Plan: -Cardiac monitoring -Serial enzymes -Serial EKGs - Cardiology consulted -PRN nitroglycerin and/or morphine -Continue home meds -Trend labs -DVT prophylaxis -Full code Comment Review of Relevant I have reviewed the following items cruz (where applicable) has been applied. Medications: Current Medications Medications (Trade) Dose Ordered Sig/John Route PRN Reason Start Time Stop Time Status Last Admin Dose Admin Amlodipine Besylate (Norvasc) 10 mg HS PO 07/19/19 21:00 07/19/19 21:19 Atorvastatin Calcium (Lipitor) 80 mg HS PO 07/19/19 21:00 07/19/19 21:17 Insulin Glargine (Lantus Syringe) 15 unit HS SQ 07/19/19 21:00 07/19/19 21:22 KEYA BHATT III DO Jul 20, 2019 12:33
--- NOTE | 2019-07-20 12:44 | PDOC2 ---
TJ ALTAMIRANO BATCH BLENDER 07/20/19 1244: CARDIAC CONSULT DATE OF CONSULT Date of Consult DATE: 07/20/19 TIME: 12:25 REASON FOR CONSULT Reason for Consult: right-sided chest pain REFERRING PHYSICIAN Referring Physician: Dr. Melvin SOURCE Source: Chart review, Patient HISTORY OF PRESENT ILLNESS HISTORY OF PRESENT ILLNESS This is a 68 yo male who presented secondary to chest pain. Patient has a history of CAD s/p PCI/stents. Has disabled . Often has to lift her to assist in transferring. Yesterday, took her to dialysis and then went to the gym to exercise. When he got home from the gym. Began having pain in his right chest area. Describes as acing pain. [place] like a pulled muscle. Pain worse when applying pressure to the left chest. No associated dizziness, diaphoresis, palpitations, shortness of breath. Went to PCP for evaluation and was referred to the ED for further evaluation given history and risk factors. PAST MEDICAL HISTORY Cardiovascular: CAD, HTN, Hyperlipidemia CENTRAL NERVOUS SYSTEM: Other (KALANI) Heme/Onc: Anemia NOS Hepatobiliary: Hep A/B/C Endocrine: Diabetes PAST SURGICAL HISTORY Past Surgical History: Other (PCI/stent ) FAMILY HISTORY Family History: Hypertension SOCIAL HISTORY Smoke: No ALCOHOL: none Drugs: None Lives: with Family CURRENT MEDICATIONS CURRENT MEDICATIONS Current Medications Medications (Trade) Dose Ordered Sig/John Route PRN Reason Start Time Stop Time Status Last Admin Dose Admin Amlodipine Besylate (Norvasc) 10 mg HS PO 07/19/19 21:00 07/19/19 21:19 Atorvastatin Calcium (Lipitor) 80 mg HS PO 07/19/19 21:00 07/19/19 21:17 Insulin Glargine (Lantus Syringe) 15 unit HS SQ 07/19/19 21:00 07/19/19 21:22 ALLERGIES ALLERGIES: Coded Allergies: No Known Drug Allergies (Unverified , 07/07/19) ROS Review of System 14 point ROS conducted with pertinent positives noted above in HPI PHYSICAL EXAM General: Alert, Oriented X3, Cooperative, No acute distress HEENT: Atraumatic, Mucous membr. moist/pink Lungs: Clear to auscultation, Normal air movement Heart: Regular rate, Normal S1, Normal S2 Abdomen: Soft, No tenderness Extremities: No edema, Normal pulses Skin: No significant lesion Neuro: Normal speech, Sensation intact Psych/Mental Status: Mental status NL, Mood NL MUSCULOSKELETAL: Osteoarthritic changes both hands VITALS/I&O VITALS/I&O: Vital Signs Date Time Temp Pulse Resp B/P (MAP) Pulse Ox O2 Delivery O2 Flow Rate FiO2 07/20/19 11:00 98.1 74 20 96/74 (81) 96 Room Air 98.1 I & O 07/19/19 07/19/19 07/20/19 15:00 23:00 07:00 Intake Total 500 ml Balance 500 ml LABS Lab: Laboratory Tests Test 07/19/19 15:16 07/19/19 20:20 07/19/19 20:57 07/19/19 23:05 White Blood Count 12.3 x10^3/uL (4.0-11.0) H Red Blood Count 3.11 x10^6/uL (4.30-5.70) L Hemoglobin 8.1 g/dL (13.0-17.5) L Hematocrit 25.3 % (39.0-53.0) L Mean Corpuscular Volume 81 fL (79-100) Mean Corpuscular Hemoglobin 26 pg (25-35) Mean Corpuscular Hemoglobin Concent 32 g/dL (31-37) Red Cell Distribution Width 16.0 % (11.5-14.5) H Platelet Count 293 x10^3/uL (140-400) Neutrophils (%) (Auto) 73 % (31-73) Lymphocytes (%) (Auto) 15 % (24-48) L Monocytes (%) (Auto) 7 % (0-9) Eosinophils (%) (Auto) 3 % (0-3) Basophils (%) (Auto) 1 % (0-3) Neutrophils # (Auto) 9.0 x10^3/uL (1.8-7.7) H Lymphocytes # (Auto) 1.9 x10^3/uL (1.0-4.8) Monocytes # (Auto) 0.9 x10^3/uL (0.0-1.1) Eosinophils # (Auto) 0.4 x10^3/uL (0.0-0.7) Basophils # (Auto) 0.1 x10^3/uL (0.0-0.2) Prothrombin Time 14.3 SEC (11.7-14.0) H Prothrombin Time INR 1.1 (0.8-1.1) D-Dimer (Erica) 0.58 ug/mlFEU (0.00-0.50) H Sodium Level 139 mmol/L (136-145) Potassium Level 3.9 mmol/L (3.5-5.1) Chloride Level 103 mmol/L (98-107) Carbon Dioxide Level 28 mmol/L (21-32) Anion Gap 8 (6-14) Blood Urea Nitrogen 29 mg/dL (8-26) H Creatinine 1.3 mg/dL (0.7-1.3) Estimated GFR (Cockcroft-Gault) 55.1 BUN/Creatinine Ratio 22 (6-20) H Glucose Level 200 mg/dL (70-99) H Calcium Level 8.3 mg/dL (8.5-10.1) L Magnesium Level 1.7 mg/dL (1.8-2.4) L Total Bilirubin 0.4 mg/dL (0.2-1.0) Aspartate Amino Transferase (AST) 18 U/L (15-37) Alanine Aminotransferase (ALT) 24 U/L (16-63) Alkaline Phosphatase 89 U/L (46-116) Creatine Kinase 126 U/L (39-308) Troponin I Quantitative < 0.017 ng/mL (0.000-0.055) < 0.017 ng/mL (0.000-0.055) < 0.017 ng/mL (0.000-0.055) IO-Ylr-R-Type Natriuretic Peptide 514 pg/mL (0-124) H Total Protein 6.2 g/dL (6.4-8.2) L Albumin 2.8 g/dL (3.4-5.0) L Albumin/Globulin Ratio 0.8 (1.0-1.7) L Lipase 214 U/L (73-393) Glucose (Fingerstick) 215 mg/dL (70-99) H Laboratory Tests 07/19/19 15:16 Laboratory Tests 07/19/19 15:16 ECHOCARDIOGRAM ECHOCARDIOGRAM <Conclusion> The left ventricular systolic function is normal. The Ejection Fraction is 60-65%. There is normal LV segmental wall motion. Doppler and Color-flow revealed mild mitral regurgitation. There is no evidence of significant pericardial effusion. DATE: 07/05/19 1635 STRESS TEST STRESS TEST Conclusion 1. No EKG evidence of ischemia. 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 2. Motion artifact noted. 3. Stress/rest images suggestive of prior inferior infarct with mild to moderate reversibility. 4. Moderate risk study 5. Normal EF at > 60% DATE: 06/26/16 1352 ASSESSMENT/PLAN ASSESSMENT/PLAN 1. Chest pain, atypical. AMi ruled out. Most probably MSK in origin. 2. Mild acute on chronic probable diastolic CHF; Recent echo with preserved LV systolic function 3. Probable KALANI 4. CAD s/p PCI/stents in 2009. Previously followed at 5. Hypertension; controlled 6. Hyperlipidemia; statin therapy 7. Diabetes, II; as per PCP 8. CKD 9. Hypomagnesemia Recommendation Lasix therapy Continue secondary prevention measures May discharge from a CV standpoint Outpatient MPI arranged Consider outpatient sleep study. Follow up in our office with Dr. Henry as scheduled. WILEY HENRY MD 07/21/19 0825: CARDIAC CONSULT ASSESSMENT/PLAN ASSESSMENT/PLAN Late entry for 07/20/2019 Patient seen and examined. Agree with above nurse practitioner note. Overall very atypical/noncardiac chest pain. We will consider outpatient stress testing given his multiple risk factors. TJ ALTAMIRANO APRN Jul 20, 2019 12:44 WILEY HENRY MD Jul 21, 2019 08:25
[2019-07-20] MEDS ORDERED: POTASSIUM CHLORIDE 20 MEQ TABLET.ER. PO ONE (13:15)
[2019-07-20] MEDS ORDERED: MAGNESIUM SULFATE 2GM 50 ML IV ONE (13:15)
[2019-07-20] MEDS ORDERED: FUROSEMIDE 20 MG/2 ML VIAL. IVP ONE (13:15)
--- NOTE | 2019-07-20 14:02 | NUR ---
SS following for discharge planning. SS reviewed pt chart. Pt is from home with spouse and is currently on room air. Discharge order on the chart for home with self care.
[2019-07-20 15:00] VITALS: BP 148/71
--- NOTE | 2019-07-20 17:15 | NUR ---
Discharge Note: ANTONIO FIGUEROA Discharge instructions and discharge home medications reviewed with Patient and a copy given. All questions have been answered and understanding verbalized. The following instructions and handouts were given: Upcoming stress test on August 14 Discontinued lines and drains: Peripheral IV intact. Patient discharged to Home or Self Care with Self via Wheelchair
== END 2019-07-20 17:15 | disposition home or self-care (01) ==
LOC: ER 13:55 → ED HOLD 15:46 → 2 NORTH 18:43
PROVIDERS: ADMIT Internal Medicine; ATTEND Internal Medicine
DX: R07.89 Other chest pain (principal); I11.0 Hypertensive heart disease with heart failure; I50.9 Heart failure, unspecified; E83.42 Hypomagnesemia; D64.9 Anemia, unspecified; E88.09 Other disorders of plasma-protein metabolism, not elsewhere classified; R79.89 Other specified abnormal findings of blood chemistry; E11.9 Type 2 diabetes mellitus without complications; I25.10 Atherosclerotic heart disease of native coronary artery without angina pectoris; Z87.891 Personal history of nicotine dependence
CPT/HCPCS: 36415; 71045; 80053; 82550; 82962; 83690; 83735; 83880; 84484; 85025; 85379; 85610; 93005; 96365; 96366; 96372; 96375; 99285; G0378; J1815; J1940; J3475; G0379

== ENCOUNTER 2019-07-23 10:40 | Emergency (ER) | payer MEDICARE, OTHER ==
[~2019-07-23] VITALS: Ht 182.9 cm; Wt 134.0 kg
[2019-07-23 12:02] LABS: BASO # 0.2 x10^3/uL (0.0-0.2); BASO % 1 % (0-3); EOS # 0.4 x10^3/uL (0.0-0.7); EOS % 3 % (0-3); HEMATOCRIT 27.3 % (39.0-53.0); HEMOGLOBIN 8.7 g/dL (13.0-17.5); LYMPH # 1.7 x10^3/uL (1.0-4.8); LYMPH % 14 % (24-48); MEAN CORPUSCULAR HEMOGLOBIN 26 pg (25-35); MEAN CORPUSCULAR HGB CONC 32 g/dL (31-37); MEAN CORPUSCULAR VOLUME 81 fL (79-100); MONO # 0.9 x10^3/uL (0.0-1.1); MONO % 7 % (0-9); NEUT # 9.5 x10^3/uL (1.8-7.7); NEUT % 75 % (31-73); PLATELET COUNT 330 x10^3/uL (140-400); RED BLOOD COUNT 3.38 x10^6/uL (4.30-5.70); RED CELL DISTRIBUTION WIDTH 16.8 % (11.5-14.5); WHITE BLOOD COUNT 12.7 x10^3/uL (4.0-11.0)
[2019-07-23 12:11] LABS: CALCIUM 8.7 mg/dL (8.5-10.1); CREATININE 1.3 mg/dL (0.7-1.3); GFR 55.1; POTASSIUM 4.6 mmol/L (3.5-5.1); PROTHROMBIN TIME PATIENT 13.6 SEC (11.7-14.0)
[2019-07-23 12:15] LABS: ALBUMIN/GLOBULIN RATIO 0.9 (1.0-1.7); TOTAL BILIRUBIN 0.5 mg/dL (0.2-1.0); TOTAL PROTEIN 6.3 g/dL (6.4-8.2)
--- NOTE | 2019-07-23 12:23 | RAD ---
Acute abdominal series: Reason for examination: Abdominal pain. Comparison is made to previous chest dated 07/19/2019. The heart size is enlarged. Mediastinum is unremarkable. Lung quinn are clear. No acute bony abnormality seen in the thorax. There is no gross organomegaly. Psoas muscles are symmetric. The bowel gas pattern is nonspecific with no abnormal dilated bowel seen. There is a large amount fecal material colon. No abnormal calcifications are seen. No acute bony abnormalities are seen in the lumbar spine or pelvis. IMPRESSION: No acute cardiopulmonary disease. Nonspecific bowel gas pattern with no evidence of obstruction however there is a large amount of fecal material in the colon. Electronically signed by: Clau Olmedo MD (07/23/2019 12:20 PM) [id number]
[2019-07-23 13:17] LABS: BILIRUBIN,URINE NEGATIVE (NEG); CLARITY,URINE CLEAR; COLOR,URINE YELLOW; NITRITE,URINE NEGATIVE (NEG); PROTEIN,URINE 100 mg/dL (NEG-TRACE); UROBILINOGEN,URINE 0.2 mg/dL (0.2 mg/dL)
[2019-07-23 13:23] LABS: HYALINE CASTS, URINE FEW /HPF; SQUAMOUS EPITHELIAL CELL,UR OCC /LPF
[2019-07-23 13:24] LABS: BACTERIA,URINE 0 /HPF (0-FEW); RBC,URINE 0 /HPF (0-2); WBC,URINE 0 /HPF (0-4)
[2019-07-23 14:00] VITALS: BP 173/78
[2019-07-23] MEDS ORDERED: CONTRAST GIVEN. MC PRN (14:00)
[2019-07-23] MEDS ORDERED: IOHEXOL 300 MG/ML 100ML VIAL. IV ONE (14:00)
--- NOTE | 2019-07-23 14:26 | RAD ---
Study: CT abdomen/pelvis with intravenous contrast Indication: Abdominal pain. Comparison: None. Technique: Helical CT imaging performed of the abdomen and pelvis after the intravenous administration of 60 cc Omnipaque 300 contrast. Sagittal and coronal reformats were obtained. One or more of the following individualized dose reduction techniques were utilized for this examination: 1. Automated exposure control 2. Adjustment of the mA and/or kV according to patient size 3. Use of iterative reconstruction technique. Findings: Chest: Motion degraded evaluation of the lower chest. Heterogeneous attenuation pattern of the visualized lungs without a confluent infiltrate or suspicious nodule. The heart is enlarged. Calcific coronary artery disease. Small paraesophageal lymph nodes. Liver: No focal hepatic parenchymal abnormality. Gallbladder/Biliary Tree: Mostly collapsed. Pancreas: Unremarkable. Spleen: Within normal limits for size. Adrenal Glands: Normal morphology. Kidneys/Ureters/Bladder: Perinephric fat stranding bilaterally. Low-attenuation focus partially exophytic off the lateral margin of the left kidney upper pole measures approximately 4.6 x 4.0 x 3.8 cm. Intermediate internal density. Exophytic focus off the lower pole the right kidney, image 60 series 2, and a very small possible exophytic focus off the lower aspect of the right kidney anteriorly, image 55 series 2. No hydroureteronephrosis. Unremarkable urinary bladder. Reproductive Organs: Unremarkable. Colon: Mild constipation. A few diverticuli are present without diverticulitis. Appendix: Normal. Small Bowel: No small bowel obstruction. Stomach: Not well evaluated due to collapse. Vasculature: Multifocal calcific plaque. Nonaneurysmal aorta. Lymph Nodes: Scattered mildly prominent inguinal lymph nodes. Right larger than left iliac chain lymph nodes such as on the right, image 91 series 2, measuring approximately 1.8 cm short axis. Left iliac chain lymph node on image 82 series 2 measures 1 cm short axis. Scattered retroperitoneal lymph nodes are not pathologically enlarged. Precaval lymph node on image 35 series 2 measures 1.3 cm short axis. Left upper quadrant mesenteric lymph node on image 39 series 2 measures 1 cm short axis. Peritoneum and Body Wall: No free pelvic fluid. No free air. Multifocal reticulation of the subcutaneous fat but most notable along the ventral aspect of the lower abdomen where there is overlying skin thickening, reference image 72 series 2 Bones: Multifocal degenerative changes. No acute or aggressive osseous abnormality. Miscellaneous: None. Impression: 1. Multifocal mild reticulation of the subcutaneous fat though with much more extensive involvement of the ventral lower abdominal wall where there is overlying skin thickening. No fluid collection is seen. Though bland body wall edema is a consideration, cellulitis would appear similarly. Recommend correlation for regional erythema. 2. Several lymph nodes measuring slightly larger than expected along the iliac chains and to a lesser degree at the inguinal regions, right upper quadrant and mesentery. A reactive etiology is favored unless there is a history of malignancy. 3. Low-attenuation focus partially exophytic off the left kidney measuring up to 4.6 cm. This is incompletely characterized and though possibly a cyst should be further evaluated with eventual renal sonography. A few smaller exophytic foci off the lower pole the right kidney which could also be better evaluated with follow-up sonography. 4. Prominent size of the heart with calcific coronary artery disease. 5. Mild colonic diverticulosis without findings of diverticulitis. Electronically signed by: GRIS ORR MD (07/23/2019 2:23 PM) [facility]
[2019-07-23] MEDS ORDERED: BISA-42 PO (15:18)
--- NOTE | 2019-07-23 15:18 | PHYS DOC ---
Past Medical History Past Medical History: CAD, Diabetes-Type II, High Cholesterol, Hypertension Past Surgical History: Other Additional Past Surgical Histo: CARDIAC STENTS, LEFT ACHILLES, RIGHT GREAT TOE Smoking Status: Former Smoker Alcohol Use: None Adult General Chief Complaint Chief Complaint: ABDOMINAL PAIN HPI HPI Patient is a 68 year old male who presented to ER today for evaluation of mid abdominal pain started last night, he described the pain as crampy in nature, denies any nausea or vomiting, no diarrhea, no fever. Patient denies any chest pain, no trouble breathing. Patient was admitted here recently due to anemia due to bleeding from his nose. Patient denies any headache, no nosebleeding at this time. Review of Systems Review of Systems aLL OTHER ros IS NEGATIVE UNLESS OTHERWISE NOTED IN hpi Current Medications Current Medications Current Medications Medications (Trade) Dose Ordered Sig/John Start Time Stop Time Status Last Admin Dose Admin Info (CONTRAST GIVEN -- Rx MONITORING) 1 each PRN DAILY PRN 07/23/19 14:00 07/23/19 15:30 DC Iohexol (Omnipaque 300 Mg/ml) 60 ml 1X ONCE 07/23/19 14:00 07/23/19 14:01 DC 07/23/19 13:52 60 ML Allergies Allergies Allergies Coded Allergies Type Severity Reaction Last Updated Verified No Known Drug Allergies 07/07/19 No Physical Exam Physical Exam See above Constitutional: Well developed, well nourished, no acute distress, non-toxic appearance. [] HENT: Normocephalic, atraumatic, bilateral external ears normal, oropharynx moist, no oral exudates, nose normal. [] Eyes: PERRLA, EOMI, conjunctiva normal, no discharge. [] Neck: Normal range of motion, no tenderness, supple, no stridor. [] Cardiovascular:Heart rate regular rhythm, no murmur [] Lungs & Thorax: Bilateral breath sounds clear to auscultation [] Abdomen: Bowel sounds normal, soft, no tenderness, no masses, no pulsatile masses. There is no swelling,no erythema on abdominal wall area . Skin: Warm, dry, no erythema, no rash. [] Back: No tenderness, no CVA tenderness. [] Extremities: No tenderness, no cyanosis, no clubbing, ROM intact, no edema. [] Neurologic: Alert and oriented X 3, normal motor function, normal sensory function, no focal deficits noted. [] Psychologic: Affect normal, judgement normal, mood normal. [] Current Patient Data Vital Signs Vital Signs Date Time Temp Pulse Resp B/P (MAP) Pulse Ox O2 Delivery O2 Flow Rate FiO2 07/23/19 14:00 71 18 173/78 (109) 95 Room Air 07/23/19 11:29 97.8 97.8 Lab Values Laboratory Tests Test 07/23/19 11:26 07/23/19 11:50 Urine Collection Type Unknown Urine Color Yellow Urine Clarity Clear Urine pH 6.0 Urine Specific [place] 1.010 Urine Protein 100 mg/dL (NEG-TRACE) Urine Glucose (UA) Negative mg/dL (NEG) Urine Ketones (Stick) Negative mg/dL (NEG) Urine Blood Negative (NEG) Urine Nitrite Negative (NEG) Urine Bilirubin Negative (NEG) Urine Urobilinogen Dipstick 0.2 mg/dL (0.2 mg/dL) Urine Leukocyte Esterase Negative (NEG) Urine RBC 0 /HPF (0-2) Urine WBC 0 /HPF (0-4) Urine Squamous Epithelial Cells Occ /LPF Urine Bacteria 0 /HPF (0-FEW) Urine Hyaline Casts Few /HPF Urine Mucus Slight /LPF White Blood Count 12.7 x10^3/uL (4.0-11.0) H Red Blood Count 3.38 x10^6/uL (4.30-5.70) L Hemoglobin 8.7 g/dL (13.0-17.5) L Hematocrit 27.3 % (39.0-53.0) L Mean Corpuscular Volume 81 fL (79-100) Mean Corpuscular Hemoglobin 26 pg (25-35) Mean Corpuscular Hemoglobin Concent 32 g/dL (31-37) Red Cell Distribution Width 16.8 % (11.5-14.5) H Platelet Count 330 x10^3/uL (140-400) Neutrophils (%) (Auto) 75 % (31-73) H Lymphocytes (%) (Auto) 14 % (24-48) L Monocytes (%) (Auto) 7 % (0-9) Eosinophils (%) (Auto) 3 % (0-3) Basophils (%) (Auto) 1 % (0-3) Neutrophils # (Auto) 9.5 x10^3/uL (1.8-7.7) H Lymphocytes # (Auto) 1.7 x10^3/uL (1.0-4.8) Monocytes # (Auto) 0.9 x10^3/uL (0.0-1.1) Eosinophils # (Auto) 0.4 x10^3/uL (0.0-0.7) Basophils # (Auto) 0.2 x10^3/uL (0.0-0.2) Prothrombin Time 13.6 SEC (11.7-14.0) Prothrombin Time INR 1.1 (0.8-1.1) Activated Partial Thromboplast Time 34 SEC (24-38) Sodium Level 138 mmol/L (136-145) Potassium Level 4.6 mmol/L (3.5-5.1) Chloride Level 103 mmol/L (98-107) Carbon Dioxide Level 25 mmol/L (21-32) Anion Gap 10 (6-14) Blood Urea Nitrogen 27 mg/dL (8-26) H Creatinine 1.3 mg/dL (0.7-1.3) Estimated GFR (Cockcroft-Gault) 55.1 BUN/Creatinine Ratio 21 (6-20) H Glucose Level 116 mg/dL (70-99) H Calcium Level 8.7 mg/dL (8.5-10.1) Total Bilirubin 0.5 mg/dL (0.2-1.0) Aspartate Amino Transferase (AST) 18 U/L (15-37) Alanine Aminotransferase (ALT) 24 U/L (16-63) Alkaline Phosphatase 102 U/L (46-116) Troponin I Quantitative < 0.017 ng/mL (0.000-0.055) Total Protein 6.3 g/dL (6.4-8.2) L Albumin 3.0 g/dL (3.4-5.0) L Albumin/Globulin Ratio 0.9 (1.0-1.7) L Lipase 214 U/L (73-393) Laboratory Tests 07/23/19 11:50 Laboratory Tests 07/23/19 11:50 EKG EKG [] Radiology/Procedures Radiology/Procedures [][facility] [address] [place] [address] IMAGING REPORT Signed PATIENT: ANTONIO FIGUEROA ACCOUNT: [id number] : 1950 LOCATION: ER AGE: 68 SEX: M EXAM STATUS: REG ER ORD. PHYSICIAN: KAELA PARADA DO REASON: abdominal pain since last night PROCEDURE: CT ABD PELV W/ IV CONTRST ONLY Study: CT abdomen/pelvis with intravenous contrast Indication: Abdominal pain. Comparison: None. Technique: Helical CT imaging performed of the abdomen and pelvis after the intravenous administration of 60 cc Omnipaque 300 contrast. Sagittal and coronal reformats were obtained. One or more of the following individualized dose reduction techniques were utilized for this examination: 1. Automated exposure control 2. Adjustment of the mA and/or kV according to patient size 3. Use of iterative reconstruction technique. Findings: Chest: Motion degraded evaluation of the lower chest. Heterogeneous attenuation pattern of the visualized lungs without a confluent infiltrate or suspicious nodule. The heart is enlarged. Calcific coronary artery disease. Small paraesophageal lymph nodes. Liver: No focal hepatic parenchymal abnormality. Gallbladder/Biliary Tree: Mostly collapsed. Pancreas: Unremarkable. Spleen: Within normal limits for size. Adrenal Glands: Normal morphology. Kidneys/Ureters/Bladder: Perinephric fat stranding bilaterally. Low-attenuation focus partially exophytic off the lateral margin of the left kidney upper pole measures approximately 4.6 x 4.0 x 3.8 cm. Intermediate internal density. Exophytic focus off the lower pole the right kidney, image 60 series 2, and a very small possible exophytic focus off the lower aspect of the right kidney anteriorly, image 55 series 2. No hydroureteronephrosis. Unremarkable urinary bladder. Reproductive Organs: Unremarkable. Colon: Mild constipation. A few diverticuli are present without diverticulitis. Appendix: Normal. Small Bowel: No small bowel obstruction. Stomach: Not well evaluated due to collapse. Vasculature: Multifocal calcific plaque. Nonaneurysmal aorta. Lymph Nodes: Scattered mildly prominent inguinal lymph nodes. Right larger than left iliac chain lymph nodes such as on the right, image 91 series 2, measuring approximately 1.8 cm short axis. Left iliac chain lymph node on image 82 series 2 measures 1 cm short axis. Scattered retroperitoneal lymph nodes are not pathologically enlarged. Precaval lymph node on image 35 series 2 measures 1.3 cm short axis. Left upper quadrant mesenteric lymph node on image 39 series 2 measures 1 cm short axis. Peritoneum and Body Wall: No free pelvic fluid. No free air. Multifocal reticulation of the subcutaneous fat but most notable along the ventral aspect of the lower abdomen where there is overlying skin thickening, reference image 72 series 2 Bones: Multifocal degenerative changes. No acute or aggressive osseous abnormality. Miscellaneous: None. Impression: 1. Multifocal mild reticulation of the subcutaneous fat though with much more extensive involvement of the ventral lower abdominal wall where there is overlying skin thickening. No fluid collection is seen. Though bland body wall edema is a consideration, cellulitis would appear similarly. Recommend correlation for regional erythema. 2. Several lymph nodes measuring slightly larger than expected along the iliac chains and to a lesser degree at the inguinal regions, right upper quadrant and mesentery. A reactive etiology is favored unless there is a history of malignancy. 3. Low-attenuation focus partially exophytic off the left kidney measuring up to 4.6 cm. This is incompletely characterized and though possibly a cyst should be further evaluated with eventual renal sonography. A few smaller exophytic foci off the lower pole the right kidney which could also be better evaluated with follow-up sonography. 4. Prominent size of the heart with calcific coronary artery disease. 5. Mild colonic diverticulosis without findings of diverticulitis. Electronically signed by: GRIS ORR MD (07/23/2019 2:23 PM) [facility] DICTATED and SIGNED BY: GRIS ORR MD DATE: 07/23/19 1423 Course & Med Decision Making Course & Med Decision Making Pertinent Labs and Imaging studies reviewed. (See chart for details) [] Dragon Disclaimer Dragon Disclaimer This electronic medical record was generated, in whole or in part, using a voice recognition dictation system. Departure Departure Impression: Primary Impression: Constipation Additional Impressions: Abdominal pain HTN (hypertension) Disposition: 01 HOME, SELF-CARE Condition: IMPROVED Referrals: KAELA HERNANDEZ MD (PCP) follow up with your doctor for reevaluation in 2 days if you are not doing better. Patient Instructions: Abdominal Pain (Nonspecific), Constipation, Adult, Hypertension Additional Instructions: Thank you for visiting our Emergency Department. We appreciate you trusting us with your care. If any additional problems come up don't hesitate to return to visit us. Please follow up with your primary care provider so they can plan additional care if needed and know about the problem that you had. If symptoms worsen come back to the Emergency Department. Any concerning symptoms that start such as chest pain, shortness of air, weakness or numbness on one side of the body, running high fevers or any other concerning symptoms return to the ER. Scripts Bisacodyl (DULCOLAX) 5 Mg Tablet.dr 10 MG PO PRN DAILY PRN for CONSTIPATION for 15 Days, #30 TAB 0 Refills Prov: KAELA PARADA DO 07/23/19 Problem Qualifiers KAELA PARADA DO Jul 23, 2019 15:18
--- NOTE | 2019-07-24 01:42 | EKG ---
[facility] [address] [place] [address] Test Date: 2019-07-23 Test Time: 12:19:43 Pat Name: ANTONIO FIGUEROA Department: Room: Gender: M [employer]: : 1950 Requested By: KAELA PARADA Order Number: [id number] Reading MD: Measurements Intervals [place] Rate: 57 P: NE: QRS: -29 QRSD: 104 T: -11 QT: 440 QTc: 435 Interpretive Statements ATRIAL FIBRILLATION LEFTWARD AXIS QRS(T) CONTOUR ABNORMALITY CONSISTENT WITH ANTEROSEPTAL INFARCT AGE UNDETERMINED CONSISTENT WITH INFERIOR INFARCT AGE UNDETERMINED ABNORMAL ECG No previous ECG available for comparison
== END 2019-07-23 15:30 | disposition home or self-care (01) ==
LOC: ER 10:40
DX: K59.00 Constipation, unspecified (principal); R10.9 Unspecified abdominal pain; I11.9 Hypertensive heart disease without heart failure; E11.9 Type 2 diabetes mellitus without complications; E78.00 Pure hypercholesterolemia, unspecified; F17.200 Nicotine dependence, unspecified, uncomplicated; Z98.890 Other specified postprocedural states
CPT/HCPCS: 36415; 74022; 74177; 80053; 81001; 83690; 84484; 85025; 85610; 85730; 93005; 99285; Q9967

== ENCOUNTER 2020-03-18 11:45 | Emergency (ER) | payer MEDICARE, OTHER ==
[~2020-03-18] VITALS: Ht 182.9 cm; Wt 129.9 kg
[~2020-03-18 11:45] MED LIST changes: +AMLO-187 PO; -AMLO10TA8 PO; +BISA-42 PO
[2020-03-18 12:37] LABS: BASO # 0.1 x10^3/uL (0.0-0.2); BASO % 0 % (0-3); EOS # 0.3 x10^3/uL (0.0-0.7); EOS % 2 % (0-3); HEMATOCRIT 37.5 % (39.0-53.0); HEMOGLOBIN 12.5 g/dL (13.0-17.5); LYMPH # 1.5 x10^3/uL (1.0-4.8); LYMPH % 9 % (24-48); MEAN CORPUSCULAR HEMOGLOBIN 29 pg (25-35); MEAN CORPUSCULAR HGB CONC 33 g/dL (31-37); MEAN CORPUSCULAR VOLUME 86 fL (79-100); MONO # 1.7 x10^3/uL (0.0-1.1); MONO % 11 % (0-9); NEUT # 12.4 x10^3/uL (1.8-7.7); NEUT % 78 % (31-73); PLATELET COUNT 245 x10^3/uL (140-400); RED BLOOD COUNT 4.34 x10^6/uL (4.30-5.70); RED CELL DISTRIBUTION WIDTH 13.2 % (11.5-14.5); WHITE BLOOD COUNT 15.9 x10^3/uL (4.0-11.0)
[2020-03-18 12:45] LABS: CALCIUM 8.7 mg/dL (8.5-10.1); CREATININE 1.4 mg/dL (0.7-1.3); GFR 50.4; POTASSIUM 3.7 mmol/L (3.5-5.1)
[2020-03-18] MEDS ORDERED: cefTRIAXone IV Push 1 GM VIAL. IVP ONE (12:45)
[2020-03-18 12:51] LABS: ALBUMIN 2.5 g/dL (3.4-5.0); ALBUMIN/GLOBULIN RATIO 0.6 (1.0-1.7); TOTAL BILIRUBIN 1.2 mg/dL (0.2-1.0); TOTAL PROTEIN 6.9 g/dL (6.4-8.2)
--- NOTE | 2020-03-18 13:14 | RAD ---
AP chest. HISTORY: Short of breath cough AP view was taken of the chest. Heart is upper normal in size or mildly enlarged. There is no pleural effusion. There are no acute infiltrates. IMPRESSION: 1. No acute infiltrates. Electronically signed by: Tip Rojas MD (03/18/2020 1:11 PM) [id number]
[2020-03-18 13:18] LABS: INFLUENZA A PATIENT NEGATIVE (NEGATIVE); INFLUENZA B PATIENT NEGATIVE (NEGATIVE)
--- NOTE | 2020-03-18 13:26 | PHYS DOC ---
Past Medical History Past Medical History: CAD, Diabetes-Type II, High Cholesterol, Hypertension (KIAN TINOCO APRN) Past Surgical History: Other Additional Past Surgical Histo: CARDIAC STENTS, LEFT ACHILLES, RIGHT GREAT TOE (KIAN TINOCO APRN) Smoking Status: Never Smoker Alcohol Use: None (KIAN TINOCO APRN) General Adult EDM: Chief Complaint: COUGH HPI: HPI: Patient is a 69 year old male who presents with a sore throat with a nonproductive cough that started Wednesday evening at home. Patient states he seen his primary Dr. Hernandez today and was sent here for an office chest x-ray concerning for bilateral lower lobe pneumonia. Patient denies any fever or chills, denies shortness of breath, states that he had pneumonia back in June and was admitted at that time at [facility]. Patient states that this illness does not feel as bad as when he had pneumonia back then. Patient states he is diabetic and his fingerstick blood sugar this morning was 106. Patient states he had not taken any of his morning medications today. Patient denies any visual changes, nasal congestion, chest pain, or swelling of his extremities. Patient denies any abdominal pain, nausea, vomiting, or constipation. Patient states he had 2 bouts of diarrhea yesterday describing his stools a small loose and brown, but has not had any further diarrhea since yesterday. Patient denies any urinary problems or penile discharge. Patient de nies any back pain or pain in his joints. Patient denies any skin rashes headaches focal weaknesses or sensory changes. Patient denies any new polyuria or polydipsia symptoms. Patient denies any recent depressions or anxieties. Patient denies any homicidal or suicidal ideation. Patient states he fears he may have the Covid virus and was tested today at his doctor's office. (KIAN TINOCO APRN) Review of Systems: Review of Systems: Constitutional: Denies fever or chills. Eyes: Denies change in visual acuity. HENT: Denies nasal congestion, complains of sore throat. Respiratory: Patient complains of cough, however denies shortness of breath. Cardiovascular: Denies chest pain or edema. GI: Denies abdominal pain, nausea, vomiting, bloody stools, complains of 2 bouts of diarrhea yesterday however denies diarrhea over the past 24 hours. : Denies dysuria. Denies penile discharge. Musculoskeletal: Denies back pain or joint pain. Integument: Denies rash. Neurologic: Denies headache, focal weakness or sensory changes. Endocrine: Denies polyuria or polydipsia. Lymphatic: Denies swollen glands. Psychiatric: Denies depression or anxiety. Denies HI/SI. (KIAN TINOCO APRN) Heart Score: Risk Factors: Risk Factors: DM, Current or recent (<one month) smoker, HTN, HLP, family history of CAD, obesity. Risk Scores: Score 0 - 3: 2.5% MACE over next 6 weeks - Discharge Home Score 4 - 6: 20.3% MACE over next 6 weeks - Admit for Clinical Observation Score 7 - 10: 72.7% MACE over next 6 weeks - Early Invasive Strategies (KIAN TINOCO APRN) Family History: Family History: Patient denies any family history related to this emergency room visit today. (KIAN TINOCO APRN) Current Medications: Carvedilol 25 mg 3 times daily, Lasix 40 mg daily, Lantus 15 units nightly, Humalog 5 units 3 times daily before meals, lisinopril 40 mg daily, Flomax 0.4 mg daily, amlodipine 10 mg daily, atorvastatin 80 mg nightly. Current Medications Medications (Trade) Dose Ordered Sig/John Start Time Stop Time Status Last Admin Dose Admin Ceftriaxone Sodium (Rocephin) 1 gm 1X ONCE 03/18/20 12:45 03/18/20 12:46 DC 03/18/20 13:06 1 GM (KIAN TINOCO APRN) Allergies: Allergies: Allergies Coded Allergies Type Severity Reaction Last Updated Verified No Known Drug Allergies 07/07/19 No (KIAN TINOCO APRN) Physical Exam: PE: Constitutional: Well developed, well nourished, no acute distress, non-toxic appearance. HENT: Normocephalic, atraumatic, bilateral external ears normal, oropharynx moist, no oral exudates, nose normal. Eyes: PERRLA, EOMI, conjunctiva normal, no discharge. Neck: Normal range of motion, no tenderness, supple, no stridor. Cardiovascular:Heart rate regular rhythm, no murmur per auscultation. Lungs & Thorax: Bilateral breath sounds clear to auscultation all lung quinn. Abdomen: Bowel sounds normal all 4 quadrants to auscultation, soft, no tenderness, no masses, no pulsatile masses. Skin: Warm, dry, no erythema, no rash. Back: No tenderness, no CVA tenderness. Extremities: No tenderness, no cyanosis, no clubbing, ROM intact, no edema. Neurologic: Alert and oriented X 3, normal motor function, normal sensory function, no focal deficits noted. Psychologic: Affect normal, judgement normal, mood normal. (KIAN TINOCO APRN) Current Patient Data: Labs: Laboratory Tests Test 03/18/20 12:10 03/18/20 12:37 03/18/20 12:39 White Blood Count 15.9 x10^3/uL (4.0-11.0) H Red Blood Count 4.34 x10^6/uL (4.30-5.70) Hemoglobin 12.5 g/dL (13.0-17.5) L Hematocrit 37.5 % (39.0-53.0) L Mean Corpuscular Volume 86 fL (79-100) Mean Corpuscular Hemoglobin 29 pg (25-35) Mean Corpuscular Hemoglobin Concent 33 g/dL (31-37) Red Cell Distribution Width 13.2 % (11.5-14.5) Platelet Count 245 x10^3/uL (140-400) Neutrophils (%) (Auto) 78 % (31-73) H Lymphocytes (%) (Auto) 9 % (24-48) L Monocytes (%) (Auto) 11 % (0-9) H Eosinophils (%) (Auto) 2 % (0-3) Basophils (%) (Auto) 0 % (0-3) Neutrophils # (Auto) 12.4 x10^3/uL (1.8-7.7) H Lymphocytes # (Auto) 1.5 x10^3/uL (1.0-4.8) Monocytes # (Auto) 1.7 x10^3/uL (0.0-1.1) H Eosinophils # (Auto) 0.3 x10^3/uL (0.0-0.7) Basophils # (Auto) 0.1 x10^3/uL (0.0-0.2) Sodium Level 138 mmol/L (136-145) Potassium Level 3.7 mmol/L (3.5-5.1) Chloride Level 103 mmol/L (98-107) Carbon Dioxide Level 30 mmol/L (21-32) Anion Gap 5 (6-14) L Blood Urea Nitrogen 17 mg/dL (8-26) Creatinine 1.4 mg/dL (0.7-1.3) H Estimated GFR (Cockcroft-Gault) 50.4 BUN/Creatinine Ratio 12 (6-20) Glucose Level 125 mg/dL (70-99) H Lactic Acid Level 0.9 mmol/L (0.4-2.0) Calcium Level 8.7 mg/dL (8.5-10.1) Total Bilirubin 1.2 mg/dL (0.2-1.0) H Aspartate Amino Transferase (AST) 22 U/L (15-37) Alanine Aminotransferase (ALT) 22 U/L (16-63) Alkaline Phosphatase 83 U/L (46-116) Total Protein 6.9 g/dL (6.4-8.2) Albumin 2.5 g/dL (3.4-5.0) L Albumin/Globulin Ratio 0.6 (1.0-1.7) L Glucose (Fingerstick) 119 mg/dL (70-99) H Influenza Type A Antigen Negative (NEGATIVE) Influenza Type B Antigen Negative (NEGATIVE) Laboratory Tests 03/18/20 12:10 Laboratory Tests 03/18/20 12:10 Vital Signs: Vital Signs Date Time Temp Pulse Resp B/P (MAP) Pulse Ox O2 Delivery O2 Flow Rate FiO2 03/18/20 12:53 74 178/83 (114) 96 Room Air 03/18/20 11:55 98.5 18 98.5 (KIAN TINOCO APRN) EKG: EKG: [] (KIAN TINOCO APRN) Radiology/Procedures: Radiology/Procedures: PATIENT: ANTONIO FIGUEROA ACCOUNT: [id number] : 1950 LOCATION: ER AGE: 69 SEX: M EXAM STATUS: REG ER ORD. PHYSICIAN: KIAN TINOCO APRN REASON: SHORT OF BREATH WITH COUGH, PUI PROCEDURE: CHEST AP ONLY AP chest. HISTORY: Short of breath cough AP view was taken of the chest. Heart is upper normal in size or mildly enlarged. There is no pleural effusion. There are no acute infiltrates. IMPRESSION: 1. No acute infiltrates. Electronically signed by: Tip Rojas MD (03/18/2020 1:11 PM) [id number] DICTATED and SIGNED BY: TIP ROJAS MD DATE: 03/18/20 1311 (ALEJANDRINAKIAN TRISTON) Radiology/Procedures: I have reviewed the PA/FREEZER ASSISTANT's note and Plan of Care. I was available for consultation as needed during the patient's visit in the emergency department. I agree with the clinical impression, plans and disposition. I personally reviewed the patient's chest x-ray and labs and vital signs. Patient does not meet indication for admission at this time based on my review. (LUCY CINTRON MD) Course & Med Decision Making: Course & Med Decision Making Pertinent Labs and Imaging studies reviewed. (See chart for details) 69-year-old male patient sent here from his primary physician's office for office chest x-ray showing bilateral lower lobe pneumonia. Patient reports he made an appointment to see his primary doctor today because he developed a sore throat Wednesday evening with a nonproductive cough. Patient denies shortness of breath, related to patient's report of being sent here by his primary physician for pneumonia a chest x-ray along with labs were ordered, along with a rapid strep, flu, COVID-19 test. Chest x-ray was nonconcerning for pneumonia no acute infection read negative per radiologist. Patient's lung sounds were clear to auscultation all lung quinn, patient does have a history of congestive heart failure however patient is in no respiratory distress with normal O2 sats 97 to 99%. This is most likely a bronchitis versus viral pharyngitis as oropharynx was slightly reddened without cobblestoning or exudative drainage nor postnasal drip. Patient's curb 65 score was 1 not recommending admission. Patient did not show signs of SIRS nor sepsis. Patient's vital signs were stable, however initial blood pressure was elevated and came down to normotensive readings during emergency room stay. Patient states he did not take his morning blood pressure medicines prior to his arrival. Patient's white blood cell count was slightly elevated, discussed case with attending ED physician Dr. Cintron who recommended patient be discharged home with p.o. Zithromax. Patient was given 1 g Rocephin IV in the emergency department along with 100 mg p.o. Zithromax prior to discharge. Discussed findings with patient and recommendation of treatment at home with p.o. Zithromax. Patient was concerned that he may have Covid, patient was reassured he would be contacted with Covid results if they are positive. Patient admission was offered, patient felt comfortable treating symptoms at home with p.o. Zithromax. Patient will be given a prescription for Zahida Tobias for cough. Patient gave verbal understanding of discharge prescription medications, home care, return to ER concerns. Patient discharged home without incident. Patient had no further questions. (KIAN TINOCO APRN) Dragon Disclaimer: Dragon Disclaimer: This electronic medical record was generated, in whole or in part, using a voice recognition dictation system. (KIAN TINOCO APRN) Departure Departure Impression: Primary Impression: Bronchitis Additional Impressions: Sore throat Person under investigation for COVID-19 Disposition: 01 DC HOME SELF CARE/HOMELESS Condition: GOOD Referrals: KAELA HERNANDEZ MD (PCP) Patient Instructions: Bronchitis Additional Instructions: You have been tested for or diagnosed with COVID-19. It is an infection caused by a new type of coronavirus. COVID-19 will cause cold-like or mild flu symptoms in most. It can cause more severe symptoms like problems breathing in some. There is no treatment for COVID-19. The body will clear the infection over time. Self-care will help to ease discomfort. Steps to Take: Self-Care Rest as needed. Healthy habits may help you feel better. Steps include: Choose healthy foods including fruits and vegetables. Drink water throughout the day. Get plenty of sleep each night. If you smoke, try to quit. It may ease breathing. Avoid alcohol. Keep Others Healthy The virus can spread to others. Droplets are released every time you sneeze or cough. The droplets can get into the mouth, nose, or eyes of people near you and lead to infection. To lower the chances of spreading COVID-19 to others: Stay at home until your doctor has said it is safe to leave. If you tested positive this will mean staying isolated until both of the following are true: At least 7 days have passed since the start of illness. You are free of fever for at least 72 hours without the use of medicine. During this time: - Avoid public areas, events, or transportation. Do not return to work or school until your doctor has said it is safe to do so. - Call ahead if you need to go to a medical center. Let them know you may have COVID-19. It will help them guide you where to go. They may also ask you to wear a facemask when you come to the office. - If you call for emergency medical services, let them know you may have COVID- 19. While at home: - Try to avoid close contact with others. Stay about 6 feet away. - If possible, spend most of your time in a separate room from others. - Use a face mask if you will be in close contact with others such as sharing a room or vehicle. - Have someone wipe down common surfaces in the home. Use household complaint supervisor every day on areas like doorknobs, counters, or sinks. - Cough or sneeze into a tissue. Throw the tissue away right after use. If a tissue is not available, cough or sneeze into your elbow. - Wash your hands often. Wash them after sneezing or coughing. Use soap and water and wash for at least 20 seconds. Alcohol based hand waste cotton cleaner can be used if soap and water is not available. - Do not prepare food for others. Avoid sharing personal items like forks, spoons, or toothbrushes. - Avoid close contact with pets while you are sick. There is no evidence of the virus passing to pets. This is a safety step until more is known about this virus. Isolation can be frustrating. Social interaction can help. Keep in touch with friends and family through phone and tech options. You can still interact with others in your home, just keep a safe distance of about 6 feet. Follow-up: Your doctors office will check in with you to see if there are any changes in your health. You may be asked to keep track of symptoms to share with them. They will also let you know when you are clear to be in public again. Problems to Look Out For: Contact your doctor if your recovery is not going as you expect. Get emergency care if you have problems such as: - Trouble breathing - Nonstop chest pain or pressure - Changes in awareness, confusion, or problems waking - Lips or face have bluish color - Worsening of symptoms If you think you have an emergency, call for emergency medical services right away. As taken from [facility] Take prescribed medications as directed, follow-up with your doctor soon if your symptoms are not getting better, return to the emergency department if you become worse. Scripts Azithromycin (AZITHROMYCIN PACKET) 1 Gm Packet 1 PACKET PO ONCE for 1 Day, #1 PACKET 0 Refills dissolve in 2 ounces of water Prov: KIAN TINOCO APRN 03/18/20 KIAN TINOCO APRN Mar 18, 2020 13:25 LUCY CINTRON MD Mar 18, 2020 14:22
[2020-03-18] MEDS ORDERED: AZITHROMYCIN 250 MG TABLET. PO ONE (13:30)
[2020-03-18] MEDS ORDERED: AZIT1PAC9 PO (13:37)
[2020-03-18 14:20] VITALS: BP 186/85
--- NOTE | 2020-03-18 17:09 | EKG ---
[facility] [address] [place] [address] Test Date: 2020-03-18 Test Time: 12:04:42 Pat Name: ANTONIO FIGUEROA Department: Room: Gender: M Stock Or Delivery Clerk: : 1950 Requested By: KIAN TINOCO Order Number: [id number] Reading MD: Measurements Intervals [place] Rate: 74 P: 90 [place]: 204 QRS: 71 QRSD: 104 T: -7 QT: 396 QTc: 440 Interpretive Statements SINUS RHYTHM ATRIAL PREMATURE COMPLEX(ES) QRS(T) CONTOUR ABNORMALITY CONSISTENT WITH INFERIOR INFARCT AGE UNDETERMINED ABNORMAL ECG RI6.02 No previous ECG available for comparison
--- NOTE | 2020-03-19 10:14 | NUR ---
IP: Informed pt of negative COVID test. Pt verbalized understanding.
== END 2020-03-18 14:33 | disposition home or self-care (01) ==
LOC: ER 11:45
DX: J40 Bronchitis, not specified as acute or chronic (principal); J02.9 Acute pharyngitis, unspecified; Z20.828 Contact with and (suspected) exposure to other viral communicable diseases; E11.9 Type 2 diabetes mellitus without complications; E78.00 Pure hypercholesterolemia, unspecified; I10 Essential (primary) hypertension; I25.10 Atherosclerotic heart disease of native coronary artery without angina pectoris; Z95.5 Presence of coronary angioplasty implant and graft
CPT/HCPCS: 36415; 71045; 80053; 82962; 83605; 85025; 87040; 87070; 87804; 87880; 93005; 96374; 99285; J0696; P9612; U0003